=== PATIENT | female | born 1980 | race Two or more races ===

== ENCOUNTER 2022-07-12 15:11 | Emergency (ER) | payer OTHER, SELFPAY ==
--- NOTE | ~2022-07-12 | CT_ITS ---
EXAMINATION: CT HEAD WITHOUT CONTRAST CT FACIAL BONES WITHOUT CONTRAST CT CERVICAL SPINE WITHOUT CONTRAST CLINICAL INFORMATION: Status post head and facial injury with laceration to left eyebrow. New onset neck pain. COMPARISON: There are no prior studies available for comparison. TECHNIQUE: Multidetector CT imaging of the head, facial bones and cervical spine was performed without the use of intravenous contrast. Coronal and sagittal reformatted images were generated at the technologist workstation. This CT examination was performed using dose optimization techniques as appropriate, variously including the following: *Automated exposure control *Adjustment of mA and/or kV according to patient size (this includes techniques or standardized protocols for targeted exams where dose is matched to indication/reason for exam; i.e. extremities or head) *Use of iterative reconstruction technique DLP: 1907 mGy-cm. FINDINGS: CT head: There is no evidence of acute intracranial hemorrhage or territorial infarction. No abnormal mass-effect or midline shift is seen. Foster to white matter differentiation is well preserved. No extra-axial fluid collections are identified. The ventricles are normal in size. There is no abnormal attenuation within the brain parenchyma. There are no acute osseous findings. There is a laceration in the left supraorbital scalp. There are retention cysts in the inferior maxillary sinuses bilaterally. The mastoid air cells and the other paranasal sinuses are well-aerated. CT facial bones: There is no acute maxillofacial fracture. The mandible and mandibular condyles are intact. The pterygoid plates, zygomatic arches and lamina papyracea are intact. The bony orbital rims are intact. The nasal bones are intact. No air-fluid levels are seen in the paranasal sinuses. The nasal septum is deviated to the left with a left-sided bony nasal septal spur. There is a torus palatini and there are maxillary meron bilaterally. 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 There are periapical lucencies around the roots of the bilateral maxillary central incisor teeth. The mastoid air cells and visualized middle ear cavities are well-aerated. The intraorbital structures are normal. The TMJs are unremarkable. CT cervical spine: There is reversal of the normal cervical lordosis which may be positional or due to muscle spasm. Vertebral body heights are maintained and no fractures are demonstrated. There are multilevel marginal osteophytes. The facets appear normally aligned. The lateral masses of C1 and C2 are normally aligned and the dens is intact. No significant degenerative changes are appreciated. There is no central canal or foraminal narrowing. The cervicomedullary junction and spinal cord are grossly unremarkable. The paraspinal soft tissues are unremarkable. The imaged lung apices are clear. CT/CT cervical spine wo IV con IMPRESSION: CT head: 1. There are no acute bleeds or territorial infarcts. 2. No masses are demonstrated. 3. There is a laceration in the left supraorbital scalp. CT maxillofacial: 1. No fractures are demonstrated. 2. The soft tissues are unremarkable. 3. There are supernumerary premolar teeth as described above. CT cervical spine: 1. There are no acute fractures or subluxations in the cervical spine.
[2022-07-12 15:14] VITALS: BP 116/78; PULSE 93; RESP 18; TEMP 36.7; O2SAT 95; BMI 33.5
--- NOTE | 2022-07-12 15:16 | ED.WOUNDLAC ---
HPI - Wound/Laceration General Chief Complaint: Head Injury <ANYI Soriano - Last Filed: 07/12/22 15:18> Stated Complaint: laceration above left eye <ANYI Soriano - Last Filed: 07/12/22 15:18> Time Seen by Provider: 07/12/22 16:27 <ANYI Soriano - Last Filed: 07/12/22 15:18> Source: patient <ANYI Ruiz - Last Filed: 07/12/22 17:09> Mode of arrival: ambulatory <ANYI Ruiz - Last Filed: 07/12/22 17:09> Limitations: no limitations <ANYI Ruiz - Last Filed: 07/12/22 17:09> History of Present Illness HPI narrative: 41-year-old female with presents the ER for evaluation of a laceration to the left side of her forehead after she hit her head on the open truck of her SUV. She states she hit the corner directly and sustained a deep laceration above her left eyebrow. She did not lose consciousness. She is on anticoagulation. No other injuries. Immediately after the incident patient had a headache and some nausea. No vomiting or confusion. <ANYI Ruiz - Last Filed: 07/12/22 17:09> Onset (ago): minute(s) <ANYI Ruiz - Last Filed: 07/12/22 17:09> Location: face <ANYI Ruiz - Last Filed: 07/12/22 17:09> Place: outdoors <ANYI Ruiz - Last Filed: 07/12/22 17:09> Patient tetanus UTD: Yes <ANYI Ruiz - Last Filed: 07/12/22 17:09> Context: accidental <ANYI Ruiz Last Filed: 07/12/22 17:09> Associated symptoms: pain <ANYI Ruiz - Last Filed: 07/12/22 17:09> Treatments prior to arrival: bandage <ANYI Ruiz Last Filed: 07/12/22 17:09> Related Data Allergies/Adverse Reactions: Allergies Allergy/AdvReac Type Severity Reaction Status Date / Time bee pollen [BEE STINGS] Allergy Unknown SWOLLEN Unverified 05/17/20 19:32 shellfish derived Allergy Unknown SWELLING Unverified 05/17/20 19:32 [SHELLFISH DERIVED] <ANYI Soriano - Last Filed: 07/12/22 15:18> Review of Systems Review of Systems: Constitutional: No Fever, No Chills ENT/Mouth: No sore throat, No Rhinorrhea Eyes: No Eye Pain, No Swelling, No visions changes. Cardiovascular: No Chest Pain, No SOB Gastrointestinal: + Nausea, No Vomiting, No Diarrhea, No abdominal Pain Genitourinary: No Dysuria, No Urinary Frequency, No Hematuria Musculoskeletal: No joint pain, No Myalgias Skin: + Skin Lesions, No rash Neuro: No Weakness, No Numbness, No Dizziness, + Headache Heme/Lymph: No Bruising, No Lymphadenopathy <ANYI Ruiz - Last Filed: 07/12/22 17:09> [facility] Social History Social History: Social History Advance Directives: No Advance Directives Information Provided: No <ANYI Soriano - Last Filed: 07/12/22 15:18> Physical Exam Vital Signs: Vital Signs: Last Vital Signs Temp 98.1 F 07/12/22 15:14 Pulse 93 07/12/22 15:14 Resp 18 07/12/22 15:14 BP 116/78 07/12/22 15:14 Pulse Ox 95 07/12/22 15:14 O2 Del Method 07/12/22 15:14 BMI result Body Mass Index 33.5 <ANYI Soriano - Last Filed: 07/12/22 15:18> Vital Signs: Last Vital Signs Temp 98.1 F 07/12/22 15:14 Pulse 93 07/12/22 15:14 Resp 18 07/12/22 15:14 BP 116/78 07/12/22 15:14 Pulse Ox 95 07/12/22 15:14 O2 Del Method 07/12/22 15:14 BMI result Body Mass Index 33.5 <ANYI Ruiz - Last Filed: 07/12/22 17:09> Appearance: Alert. Oriented X3. No acute distress. Head/face: There is a deep approximately 5 cm linear laceration over the patient's left eyebrow, beginning in the middle of the left eyebrow and extending superiorly and laterally. It is gaping about 1 cm. No active bleeding. There is surrounding soft tissue swelling and tenderness. Eyes: Pupils equal, round and reactive to light. EOMI. ENT: Pharynx normal. Normal tympanic membranes bilaterally. Neck: Normal inspection. Neck supple. No midline tenderness. Normal range of motion. CVS: Normal heart rate and rhythm. Pulses normal. Respiratory: No respiratory distress. Breath sounds normal. Skin: Skin warm and dry. Normal skin color. Normal skin turgor. No rashes. Extremities: Normal inspection range of motion x4. Neuro: Oriented X 3. No motor deficit. No sensory deficit. CN II-XII intact. normal speech and cognition. <ANYI Ruiz - Last Filed: 07/12/22 17:09> Course Reevaluation(s) Reevaluation #1: 41-year-old female presenting to the ER with complaints of a laceration to her left eyebrow/forehead that occurred prior to arrival after she accidentally walked into her trunk that was opening at the same time. She denies loss of consciousness or neck injury and she did not fall down to the ground. She reports she is up-to-date on tetanus. She denies any other symptoms complaints or concerns at this time. Plan: At this time she will go back to the waiting room and a CT scan of her brain/facial bones were ordered will need to be sutured. She has a proximally 3 cm intermediate laceration right above the left eyebrow. <ANYI Soriano - Last Filed: 07/12/22 15:18> Time: 15:17 <ANYI Soriano - Last Filed: 07/12/22 15:18> Reevaluation #2: Patient's CT scans showed no traumatic injury. See procedure note for lac repair. Wound care instructions were discussed with the patient and her . She is stable for discharge home. <ANYI Ruiz - Last Filed: 07/12/22 17:09> Time: 17:07 <ANYI Ruiz Last Filed: 07/12/22 17:09> Medications Administered Discontinued Medications Generic Name Dose Route Start Last Admin Trade Name Freq PRN Reason Stop Dose Admin Lidocaine HCl 5 ml 07/12/22 16:27 07/12/22 16:34 Lidocaine Hcl 2 % Mpf 5 Ml Vial SUBCUT 07/12/22 16:28 5 ml ONCE ONE Administration <ANYI Soriano - Last Filed: 07/12/22 15:18> Medications Administered Discontinued Medications Generic Name Dose Route Start Last Admin Trade Name Zully PRN Reason Stop Dose Admin Lidocaine HCl 5 ml 07/12/22 16:27 07/12/22 16:34 Lidocaine Hcl 2 % Mpf 5 Ml Vial SUBCUT 07/12/22 16:28 5 ml ONCE ONE Administration <ANYI Ruiz - Last Filed: 07/12/22 17:09> Procedures Laceration Laceration 1: Site: face <ANYI Ruiz - Last Filed: 07/12/22 17:09> Side (If applicable): left <ANYI Ruiz - Last Filed: 07/12/22 17:09> Size (cm): 5 <ANYI Ruiz - Last Filed: 07/12/22 17:09> Description: linear <ANYI Ruiz - Last Filed: 07/12/22 17:09> Depth: involves muscle layer <ANYI Ruiz - Last Filed: 07/12/22 17:09> Local Anesthetic: lidocaine 2% <ANYI Ruiz - Last Filed: 07/12/22 17:09> Amount of anesthesia used (mL): 4 <ANYI Ruiz - Last Filed: 07/12/22 17:09> Pre-repair: wound explored, irrigated extensively and deep structures intact <ANYI Ruiz - Last Filed: 07/12/22 17:09> Skin layer closed with: other (prolene) <ANYI Ruiz - Last Filed: 07/12/22 17:09> Size (cm): 6-0 <ANYI Ruiz - Last Filed: 07/12/22 17:09> Number of sutures: 7 <ANYI Ruiz - Last Filed: 07/12/22 17:09> Technique: simple, interrupted <ANYI Ruiz - Last Filed: 07/12/22 17:09> Subcutaneous layer closed with: chromic gut <ANYI Ruiz Last Filed: 07/12/22 17:09> Size: 6-0 <ANYI Ruiz - Last Filed: 07/12/22 17:09> Number of sutures: 3 <ANYI Ruiz - Last Filed: 07/12/22 17:09> Technique: simple, interrupted <ANYI Ruiz - Last Filed: 07/12/22 17:09> Discharge Plan Discharge Clinical Impression: Forehead laceration, Head injury <ANYI Soriano Last Filed: 07/12/22 15:18> Patient Disposition: Home, Self-Care <ANYI Soriano Last Filed: 07/12/22 15:18> Instructions: Laceration (ED), Head Injury (ED) <ANYI Soriano Last Filed: 07/12/22 15:18> Additional Instructions: Your CT scans did not show any evidence of traumatic injury. You will need your stitches out in 5-7 days. See you doctor for this or come back to the ER and we will remove them. Do not get wet for 24 hours, after that you can briefly wash with soap and water then pat dry. Keep wound open to air, allow to scab over. Use ice several times per day to help with pain and swelling. Take Motrin and Tylenol as needed for pain and headache. Do not submerge in water. Rest. No strenuous activity. Avoid screen time this weekend. If you develop signs of infection including increased pain, swelling, redness or drainage of pus come back to the ER for further evaluation. <ANYI Soriano Last Filed: 07/12/22 15:18>
[2022-07-12] MEDS: Lidocaine HCl 2 % MPF 5 ML VIAL SUBCUT (16:34)
--- OUTSIDE RECORDS SUMMARY | 2022-07-12 16:36 | XMS_ITS | Continuity of Care Document ---
:1980 Author Organization [facility] Address [address] [place] [address]- Care Team Providers Name Role Phone Ryan EUCEDA, Shilpa Tellez Primary Care Physician [place] [facility] [place] 11[place]18/21 - 12/18/21 [facility] [address] [place] [address]- Allergies, Adverse Reactions, Alerts Substance Reaction Severity Status shellfish facial swelling Active Bee Stings SOB/localized swelling Active Immunizations Given and Recorded Vaccine Date Status Refusal Reason SARS-CoV-2 (COVID-19) mRNA BNT-162b2 vac 12/21/20 Recorde d SARS-CoV-2 (COVID-19) mRNA BNT-162b2 vac 11/30/20 Recorde d tetanus/diphtheria/pertussis, acel(Tdap)1 04/25/11 Given 1Admin Note: vis given Medications amitriptyline 10 mg oral tablet 20 mg, 2, tablet, By Mouth, Daily at bedtime, # 60 tablet, Refills 5, Tot. Refills 5, Maintenance, 12/09/21 15:19:00 EDT, Route to Pharmacy Electronically, [facility]/pharmacy #[id number], Partial fill upon patientrequest if the prescription is for a schedule II... Start Date: 12/09/21 Status: Ordereddiclofenac sodium 75 mg oral delayed release tablet 1 tablet = 75 mg, By Mouth, 2 times a day, PRN for pain, # 20 tablet, 0 Refills, Maintenance, 12/09/21 8:28:00 EDT, Tablet, Partial fill upon patient request if the prescription is for a schedule II opioid drug. Start Date: 12/09/21 Status: Orderedescitalopram 10 mg oral tablet 1 tablet = 10 mg, By Mouth, Daily, # 30 tablet, 5 Refills, Maintenance, 12/09/21 8:38:00 EDT, Tablet, [facility]/pharmacy #[id number], Partial fill upon patient request if the prescription is for a schedule II opioid drug., 162.56, cm, 12/09/21 8:17:00 EDT, Height... 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
--- OUTSIDE RECORDS SUMMARY | 2022-07-12 16:36 | XMS_ITS | Continuity of Care Document ---
:1980 Author Organization [facility] Address [address] [place] [address]- Care Team Providers Name Role Phone Maddison VU, [facility] Primary Care Physician En[place] [facility] [place] Date(s): 02/17/22 - 02/24/22 [facility] [address] [place] [address]- [place] Encounter Diagnosis Rash (Discharge Diagnosis) - 02/17/22 Attending Physician: Yasmani Alvarenga MD Allergies, Adverse Reactions, Alerts Substance Reaction Severity Status shellfish facial swelling Active Bee Stings SOB/localized swelling Active Immunizations Given and Recorded Vaccine Date Status Refusal Reason SARS-CoV-2 (COVID-19) mRNA BNT-162b2 vac 07/26/21 Recorde d SARS-CoV-2 (COVID-19) mRNA BNT-162b2 vac 12/21/20 Recorde d SARS-CoV-2 (COVID-19) mRNA BNT-162b2 vac 11/30/20 Recorde d tetanus/diphtheria/pertussis, acel(Tdap)1 04/25/11 Given 1Admin Note: vis given Medications permethrin 5% topical cream 1 application, Topically, Once, Apply to skin from head to soles. Leave on 8-10 hours then wash off,# 60 mL, 0 Refills, Soft Stop, 02/17/22 13:46:00 EDT, Lotion, [facility]/pharmacy #[id number], Partial fill upon patient request if the prescription is for a sched... Start Date: 02/17/22 Status: OrderedpredniSONE 50 mg oral tablet 1 tablet = 50 mg, By Mouth, Daily, # 5 tablet, 0 Refills, Maintenance, 01/29/22 14:14:00 EDT, Tablet, [id number], Partial fill upon patient request if the prescription is for a schedule II opioid drug., 162.56, cm, 01/29/22 13:50:00 EDT, Heigh... Start Date: 01/29/22 Stop Date: 02/03/22 Status: Orderedzolpidem 10 mg oral tablet 1 tablet = 10 mg, By Mouth, Daily at bedtime, PRN as needed for insomnia, for 15 days, # 15 tablet, 5 Refills, Acute 05/08/22 16:00:00 EDT, 02/07/22 16:00:00 EDT, Tablet, [facility]/pharmacy #[id number], Partial fill upon patient request if the prescription is for... Start Date: 02/07/22 Stop Date: 05/08/22 Status: Orderedzolpidem 6.25 mg oral tablet, extended release 1 tablet = 6.25 mg, By Mouth, Daily at bedtime, PRN as needed for sleep, # 12 tablet, 0 Refills, Maintenance, 01/06/22 8:23:00 EDT, ER Tablet, [facility]/pharmacy #[id number], Partial fill upon patient request if the prescription is for a schedule II opioid drug.,... 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) JAIMIE (generalized anxiety Active disorder)(Confirmed) Insomnia(Confirmed) Active Obese class II(Confirmed) Active Recurrent loss(Confirmed) Active Tension headache(Confirmed) Active Urethral Diverticulum(Confirmed) Active Diagnosis Diagnosis Type Effective Dates Health Status Clinical Serv ice Informant Rash Discharge 02/17/22 Diagnosis Vital Signs Most recent to oldest [Reference Range]: 1 Height 162 cm (02/17/22 12:51 PM) Weight 101.5 kg (02/17/22 12:51 PM) Oxygen Saturation [94-100 %] 100 % (02/17/22 12:51 PM) Pulse Rate [55-90 bpm] 87 bpm (02/17/22 12:51 PM) Body Mass Index [18.5-24.99] 38.68 *>HHI* (02/17/22 12:51 PM) Blood Pressure [90-138/55-84 mm Hg] 115/81 mm Hg (02/17/22 12:51 PM) Mode of Delivery (Oxygen) Room air (02/17/22 12:51 PM) Blood pressure sites Arm, left (02/17/22 12:51 PM) Weight Obtained Via Standing scale (02/17/22 12:51 PM) Social History Social History Type Response Smoking Status Never smoker entered on: 11/16/13 Sex
--- OUTSIDE RECORDS SUMMARY | 2022-07-12 16:36 | XMS_ITS | Continuity of Care Document ---
:1980 Author Organization [facility] Address [address] [place] [phone]- Care Team Providers Name Role Phone Not on Staff, PCP Primary Care Physician Unavailable [place] [facility] [place] [facility] [place]07/20 [facility] [address] [place] [id number] Attending Physician: Kerri Guerrero MD Referring Physician: Not on Staff, Referring MD Allergies, Adverse Reactions, Alerts Substance Reaction Severity Status shellfish facial swelling Active Bee Stings SOB/localized swelling Active Immunizations Given and Recorded Vaccine Date Status Refusal Reason tetanus/diphtheria/pertussis, acel(Tdap)1 04/25/11 Given 1Admin Note: vis given Medications CoQ10 = 300 mg, By Mouth, Daily, 0 Refills, Maintenance, 10/01/20 15:01:00 EST, Partial fill upon patient request if the prescription is for a schedule II opioid drug. Start Date: 10/01/20 Status: OrderedDHEA By Mouth, Daily, 0 Refills, Maintenance, 10/01/20 15:01:00 EST, Partial fill upon patient request ifthe prescription is for a schedule II opioid drug. Start Date: 10/01/20 Status: OrderedEstrace 2 mg oral tablet 1 tablet = 2 mg, By Mouth, 2 times a day, Take daily for 3 weeks, # 84 tablet, 0 Refills, Maintenance, 06/04/20 11:00:00 EDT, Tablet, [facility]/pharmacy #[id number], 162.56, cm, 06/04/20 8:39:00 EDT, Height, 96.5,kg, 06/04/20 8:39:00 EDT, Dry Weight Start Date: 06/04/20 Status: OrderedMisc Rx lipozene 2 capsules, Daily, Refills 0, Maintenance, 05/29/20 15:57:00 EDT, Supply Start Date: 05/29/20 Status: OrderedMultivitamin Daily, 0 Refills, Maintenance, 10/01/20 15:01:00 EST, Partial fill upon patient request if the prescription is for a schedule II opioid drug. Start Date: 10/01/20 Status: OrderedProvera 10 mg oral tablet 10 mg, 1, tablet, By Mouth, Daily, Take daily for 10 days following estrace, # 20 tablet, Refills 0,Tot. Refills 0, Maintenance, 06/04/20 11:01:00 EDT, Route to Pharmacy Electronically, [facility]/pharmacy #[id number], 162.56, cm, 06/04/20 8:39:00 EDT, Height, 96... Start Date: 06/04/20 Status: OrderedVitamin B12 0 Refills, Maintenance, 10/01/20 15:01:00 EST, Partial fill upon patient request if the prescriptionis for a schedule II opioid drug. Start Date: 10/01/20 Status: Ordered Problem List Condition Effective Dates Status Health Status Informant 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
--- OUTSIDE RECORDS SUMMARY | 2022-07-12 16:36 | XMS_ITS | Continuity of Care Document ---
:1980 Author Organization [facility] Address [address] [place] [phone]- Care Team Providers Name Role Phone Not on Staff, PCP Primary Care Physician Unavailable En[place] [facility] [place] Date(s): 10/17/19 - 10/24/19 [facility] [address] [place] [address] [facility] Attending Physician: Kerri Guerrero MD Referring Physician: Not on Staff, Referring MD Allergies, Adverse Reactions, Alerts Substance Reaction Severity Status shellfish facial swelling Active Bee Stings SOB/localized swelling Active Immunizations Given and Recorded Vaccine Date Status Refusal Reason tetanus/diphtheria/pertussis, acel(Tdap)1 04/25/11 Given 1Admin Note: vis given Medications Colace sodium 100 mg oral capsule 100 mg, 1, capsule, By Mouth, 2 times a day, PRN, # 20 capsule, Refills 0, Tot. Refills 0, Maintenance, for constipation, 10/05/19 7:46:00 EST, Route to Pharmacy Electronically, [facility]/pharmacy #[id number], 167.64, cm, 10/05/19 7:19:00 EST, Height, 99.8, kg, 0... Start Date: 10/05/19 Status: Orderedibuprofen 600 mg oral tablet 600 mg, 1, tablet, By Mouth, Every 6 hours, # 30 tablet, Refills 0, Tot. Refills 0, Acute 11/04/19 0:00:00 EST, 10/05/19 7:46:00 EST, Route to Pharmacy Electronically, [facility]/pharmacy #[id number], 167.64, cm, 10/05/19 7:19:00 EST, Height, 99.8, kg, 10/03/19 14... Start Date: 10/05/19 Stop Date: 11/04/19 Status: OrderedSenna 8.6 mg oral tablet 17.2 mg, 2, tablet, By Mouth, Daily at bedtime, PRN, # 20 tablet, Refills 0, Tot. Refills 0, Acute, for constipation, 11/04/19 0:00:00 EST, 10/05/19 7:46:00 EST, Route to Pharmacy Electronically, [facility]/pharmacy #[id number] Tablet, 167.64, cm, 10/05/19 7:19:00... Start Date: 10/05/19 Stop Date: 11/04/19 Status: Orderedsimethicone 80 mg oral tablet 1 tablet = 80 mg, Chew, 3 times a day after meals and bedtime, PRN for gas, # 60 tablet, 0 Refills, Acute 11/04/19 0:00:00 EST, 10/05/19 7:46:00 EST, Tablet, [facility]/pharmacy #[id number], 167.64, cm, 10/05/19 7:19:00 EST, Height, 99.8, kg, 10/03/19 14:43:00 EST... Start Date: 10/05/19 Stop Date: 11/04/19 Status: OrderedTylenol 325 mg oral tablet 650 mg, 2, tablet, By Mouth, Every 4 hours, PRN, # 120 tablet, Refills 0, Tot. Refills 0, Acute 11/04/19 0:00:00 EST, for pain, 10/05/19 7:46:00 EST, Route to Pharmacy Electronically, [facility]/pharmacy #[id number], 167.64, cm, 10/05/19 7:19:00 EST, Height, 99.8,... Start Date: 10/05/19 Stop Date: 11/04/19 Status: Ordered Problem List Condition Effective Dates Status Health Status Informant Recurrent loss(Confirmed) Active Urethral Diverticulum(Confirmed) Active Vital Signs Most recent to oldest [Reference Range]: 1 Height 167.64 cm (10/17/19 1:23 PM) Weight 99 kg (10/17/19 1:23 PM) Body Mass Index [18.5-24.99] 35.23 *>HHI* (10/17/19 1:23 PM) Blood Pressure [90-138/55-84 mm Hg] 113/89 mm Hg (10/17/19 1:23 PM) Social History Social History Type Response Smoking Status Never smoker entered on: 11/16/13 Sex
--- OUTSIDE RECORDS SUMMARY | 2022-07-12 16:36 | XMS_ITS | Continuity of Care Document ---
:1980 Author Organization [facility] Address [address] [place] [id number]- Care Team Providers Name Role Phone Not on Staff, PCP Primary Care Physician Unavailable Encounter [facility] [place] Date(s): 04/18/20 - 04/25/20 [facility] [address] [place] [id number] Attending Physician: Kerri Guerrero MD Allergies, Adverse Reactions, Alerts Substance Reaction [...] 10/05/19 7:46:00 EST, Route to Pharmacy Electronically, [facility]/pharmacy #[id number], 167.64, cm, 10/05/19 7:19:00 EST, Height, 99.8, kg, 0... Start Date: 10/05/19 Status: Ordered Problem List Condition Effective Dates Status Health Status Informant Recurrent loss(Confirmed) Active Urethral Diverticulum(Confirmed) Active Vital Signs Most recent to oldest [Reference Range]: 1 Height 167.64 cm (04/18/20 8:03 AM) Weight 99.3 kg (04/18/20 8:03 AM) Pulse Rate [55-90 bpm] 78 bpm (04/18/20 8:03 AM) Body Mass Index [18.5-24.99] 35.33 *>HHI* (04/18/20 8:03 AM) Blood Pressure [90-138/55-84 mm Hg] 142/117 mm Hg *H* (04/18/20 8:03 AM) Blood pressure sites Arm, left (04/18/20 8:03 AM) Weight Obtained Via Standing scale (04/18/20 8:03 AM) Dry Weight Obtained Via Standing scale (04/18/20 8:03 AM) Social History Social History Type Response Smoking Status Never smoker entered on: 11/16/13 Sex
--- OUTSIDE RECORDS SUMMARY | 2022-07-12 16:36 | XMS_ITS | Continuity of Care Document ---
:1980 Author Organization [facility] Address [address] [place] [address]- Care Team Providers Name Role Phone Not on Staff, PCP Primary Care Physician Unavailable Encounter [facility] [place] Date(s): 06/04/20 - 06/04/[address] [address]- [facility] Discharge Disposition: A-D/C Home Attending Physician: Kerri Guerrero MD Admitting Physician: Kerri Guerrero MD Referring Physician: Kerri Guerrero MD Allergies, Adverse Reactions, Alerts Substance Reaction Severity Status shellfish facial swelling Active Bee Stings SOB/localized swelling Active Immunizations Given and Recorded Vaccine Date Status Refusal Reason tetanus/diphtheria/pertussis, acel(Tdap)1 04/25/11 Given 1Admin Note: vis given Medications Estrace 2 mg oral tablet 1 tablet = 2 mg, By Mouth, 2 times a day, Take daily for 3 weeks, # 84 tablet, 0 Refills, Maintenance, 06/04/20 11:00:00 EDT, Tablet, [id number], 162.56, cm, 06/04/20 8:39:00 EDT, Height, 96.5,kg, 06/04/20 8:39:00 EDT, Dry Weight Start Date: 06/04/20 Status: OrderedMisc Rx lipozene 2 capsules, Daily, Refills 0, Maintenance, 05/29/20 15:57:00 EDT, Supply Start Date: 05/29/20 Status: OrderedmiSOPROStol 200 mcg oral tablet 1 tablet = 200 mcg, Vaginally, Once, 1 Tablet VAGINALLY the evening before procedure, # 1 tablet, 0 Refills, Soft Stop, 05/30/20 9:53:00 EDT, [id number], 162.56, cm, 05/30/20 8:58:00 EDT, Height, 94.09, kg, 05/29/20 16:18:00 EDT, Dry Weight Start Date: 05/30/20 Status: OrderedoxyCODONE 5 mg oral tablet See Instructions, 1-2 tablets By Mouth Every4- 6 hours prn post-op pain, # 10 tablet, Refills 0, Tot. Refills 0, Acute 06/08/20 11:02:00 EDT, 05/30/20 12:18:00 EDT, Instructions Replace Required Details, Route to Pharmacy Electronically, [facility]/pharmacy... Start Date: 05/30/20 Stop Date: 06/08/20 Status: OrderedProvera 10 mg oral tablet 10 mg, 1, tablet, By Mouth, Daily, Take daily for 10 days following estrace, # 20 tablet, Refills 0,Tot. Refills 0, Maintenance, 06/04/20 11:01:00 EDT, Route to Pharmacy Electronically, [facility]/pharmacy #[id number], 162.56, cm, 06/04/20 8:39:00 EDT, Height, 96... Start Date: 06/04/20 Status: Ordered Problem List Condition Effective Dates Status Health Status Informant Recurrent loss(Confirmed) Active Urethral Diverticulum(Confirmed) Active Vital Signs Most recent to oldest 1 2 3 [Reference Range]: Height 162.56 cm 162.56 cm (06/04/20 8:39 AM) (05/29/20 4:18 PM) Weight 96.5 kg 94.09 kg (06/04/20 8:39 AM) (05/29/20 4:18 PM) Oxygen Saturation [94-100 95 % 95 % 100 % %] (06/04/20 12:15 PM) (06/04/20 12:00 PM) (06/04/20 1 1:45 AM) Pulse Rate [55-90 bpm] 72 bpm (06/04/20 8:39 AM) Body Mass Index 36.52 35.61 [18.5-24.99] *>HHI* *>HHI* (06/04/20 8:39 AM) (05/29/20 4:18 PM) Blood Pressure 119/71 mm Hg 129/73 mm Hg 131/78 mm Hg [90-138/55-84 mm Hg] (06/04/20 12:15 PM) (06/04/20 12:00 PM) (06/04 11:45 AM) Respiratory Rate [16-30 16 br/min 25 br/min 17 br/mi n br/min] (06/04/20 12:15 PM) (06/04/20 12:00 PM) (06/04/20 1 1:45 AM) Temperature [96.8-100.4 97.2 DegF 97.9 DegF 98.8 Deg F DegF] (06/04/20 12:15 PM) (06/04/20 11:00 AM) (06/04/20 8 :39 AM) Liters per Minute 6 L/min 6 L/min (06/04/20 11:30 AM) (06/04/20 11:00 AM) Mode of Delivery (Oxygen) Room air Room air Room a ir (06/04/20 1:00 PM) (06/04/20 12:15 PM) (06/04/20 12 :00 PM) Blood pressure sites Arm, right Arm, left (06/04/20 11:00 AM) (06/04/20 8:39 AM) Temperature Route Temporal Temporal Temporal (06/04/20 12:15 PM) (06/04/20 11:00 AM) (06/04/20 8 :39 AM) Dry Weight 96.5 kg 94.09 kg (06/04/20 8:39 AM) (05/29/20 4:18 PM) Weight Obtained Via Standing scale Patient/family stated (06/04/20 8:39 AM) (05/29/20 4:18 PM) Dry Weight Obtained Via Standing scale Patient/family stated (06/04/20 8:39 AM) (05/29/20 4:18 PM) Social History Social History Type Response Smoking Status Never smoker entered on: 11/16/13 Sex
--- OUTSIDE RECORDS SUMMARY | 2022-07-12 16:36 | XMS_ITS | Continuity of Care Document ---
:1980 Author Organization [facility] Address [address] [facility], 4th Floor [address] [place] [address]- Care Team Providers Name Role Phone Not on Staff, PCP Primary Care Physician Unavailable Encounter [facility] Date(s): 04/03/20 - 05/03/20 [facility] [address] [facility], [address] [place] [address]- [facility] Allergies, Adverse Reactions, Alerts Substance Reaction Severity [...] 10/05/19 7:46:00 EST, Route to Pharmacy Electronically, [facility]acy #[id number], 167.64, cm, 10/05/19 7:19:00 EST, Height, 99.8, kg, 0... 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
--- OUTSIDE RECORDS SUMMARY | 2022-07-12 16:36 | XMS_ITS | Continuity of Care Document ---
:1980 Author Organization [facility] Address [address] [facility], 4th Floor [address] [place] [address]- Care Team Providers Name Role Phone Not on Staff, PCP Primary Care Physician Unavailable Encounter [facility] Date(s): 11/08/20 - 12/08/20 [facility] [address] [place] [address], [address] [place] [id number] Allergies, Adverse Reactions, Alerts Substance Reaction Severity Status shellfish facial swelling Active Bee Stings SOB/localized swelling Active Immunizations Given and Recorded Vaccine Date Status Refusal Reason tetanus/diphtheria/pertussis, acel(Tdap)1 04/25/11 Given 1Admin Note: vis given Problem List Condition Effective Dates Status Health Status Informant 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
--- OUTSIDE RECORDS SUMMARY | 2022-07-12 16:36 | XMS_ITS | Continuity of Care Document ---
:1980 Author Organization [facility] Address [address] [place] [address]- Care Team Providers Name Role Phone Dorothy Washburn MD Primary Care Physician [place] [facility] [place] 12/24/21 - 01/23/22 [facility] [address] [place] [address]- Allergies, Adverse Reactions, Alerts Substance Reaction Severity Status shellfish facial swelling Active Bee Stings SOB/localized swelling Active Immunizations Given and Recorded Vaccine Date Status Refusal Reason SARS-CoV-2 (COVID-19) mRNA BNT-162b2 vac 12/21/20 Recorde d SARS-CoV-2 (COVID-19) mRNA BNT-162b2 vac 11/30/20 Recorde d tetanus/diphtheria/pertussis, acel(Tdap)1 04/25/11 Given 1Admin Note: vis given Medications diclofenac sodium 75 mg oral delayed release tablet [...] 5 Refills, Maintenance, 12/09/21 8:38:00 EDT, Tablet, [id number], Partial fill upon patient request if the prescription is for a schedule II opioid drug., 162.56, cm, 12/09/21 8:17:00 EDT, Height... Start Date: 12/09/21 Status: Orderedzolpidem 6.25 mg oral tablet, extended release 1 tablet = 6.25 mg, By Mouth, Daily at bedtime, PRN as needed for sleep, # 12 tablet, 0 Refills, Maintenance, 01/06/22 8:23:00 EDT, ER Tablet, [id number], Partial fill upon patient [...]
--- OUTSIDE RECORDS SUMMARY | 2022-07-12 16:36 | XMS_ITS | Continuity of Care Document ---
:1980 Author Organization [facility] Address [address] [facility], 4th Floor [address] [place] [address]- Care Team Providers Name Role Phone Ryan TOMATO PASTE MAKER, Shilpa Tellez Primary Care Physician [phone] Encounter [facility] [place] Date(s): 02/20/21 - 03/22/21 [facility] [address] [facility], [address] [place] [address] Attending Physician: Nayely Hoover Admitting Physician: Nayely Hoover Referring Physician: Nayely Hoover Allergies, Adverse Reactions, Alerts Substance Reaction Severity [...]
--- OUTSIDE RECORDS SUMMARY | 2022-07-12 16:36 | XMS_ITS | Continuity of Care Document ---
:1980 Author Organization [facility] Address [address] [place] [address]- Care Team Providers Name Role Phone Ryan EUCEDA, Shilpa Tellez Primary Care Physician [phone] Encounter [facility] Date(s): 05/13/21 - 05/20/21 [facility] Adult [address] [place] [address]- Encounter Diagnosis Claustrophobia (Discharge Diagnosis) - 05/13/21 Attending Physician: Ramila Jenkins MD Referring Physician: Ryan EUCEDA, Shilpa Tellez Allergies, Adverse Reactions, Alerts Substance Reaction Severity Status shellfish facial swelling Active Bee Stings SOB/localized swelling Active Immunizations Given and Recorded Vaccine Date Status Refusal Reason SARS-CoV-2 (COVID-19) mRNA BNT-162b2 vac 12/21/20 Recorde d SARS-CoV-2 (COVID-19) mRNA BNT-162b2 vac 11/30/20 Recorde d tetanus/diphtheria/pertussis, acel(Tdap)1 04/25/11 Given 1Admin Note: vis given Medications Hydrocodone By Mouth, 0 Refills, Maintenance, 05/13/21 14:14:00 EDT, Partial fill upon patient request if the prescription is for a schedule II opioid drug. 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
--- OUTSIDE RECORDS SUMMARY | 2022-07-12 16:36 | XMS_ITS | Continuity of Care Document ---
:1980 Author Organization [facility] Address [address] [place] [address]- Care Team Providers Name Role Phone Ryan EUCEDA, Shilpa Tellez Primary Care Physician [place] [facility] [place] 12/09/21 - 01/08/22 [facility] [address] [place] [address]- Allergies, Adverse Reactions, Alerts Substance Reaction Severity [...] Refills, Maintenance, 01/06/22 8:23:00 EDT, ER Tablet, [facility]/pharmacy #[id number], Partial fill upon patient request [...]
--- OUTSIDE RECORDS SUMMARY | 2022-07-12 16:36 | XMS_ITS | Continuity of Care Document ---
:1980 Author Organization [facility] Address [address] [place] [address]- Care Team Providers Name Role Phone Ryan EUCEDA, Shilpa Tellez Primary Care Physician [phone] Encounter [facility] [place] Date(s): 11/15/21 - 11/22/21 [facility] Adult [address] [place] [address]- Encounter Diagnosis Tension headache (Discharge Diagnosis) - 11/15/21 Moderately severe depression (Discharge Diagnosis) - 11/15/21 Attending Physician: Not on Staff, Attending MD Allergies, Adverse Reactions, Alerts Substance Reaction Severity Status shellfish facial swelling Active Bee Stings SOB/localized swelling Active Immunizations Given and Recorded Vaccine Date Status Refusal Reason SARS-CoV-2 (COVID-19) mRNA BNT-162b2 vac 12/21/20 Recorde d SARS-CoV-2 (COVID-19) mRNA BNT-162b2 vac 11/30/20 Recorde d tetanus/diphtheria/pertussis, acel(Tdap)1 04/25/11 Given 1Admin Note: vis given Medications amitriptyline 10 mg oral tablet 10 mg, 1, tablet, By Mouth, Daily at bedtime, # 30 tablet, Refills 5, Tot. Refills 5, Maintenance, 11/18/21 13:57:00 EDT, Route to Pharmacy Electronically, [facility]/pharmacy #[id number], Partial fill upon patientrequest if the prescription is for a schedule II... Start Date: 11/18/21 Status: Ordered Problem List Condition Effective Dates Status Health Status Informant Achilles tendinosis of left lower Active extremity(Confirmed) Obese class II(Confirmed) Active Recurrent loss(Confirmed) Active Tension headache(Confirmed) Active Urethral Diverticulum(Confirmed) Active Diagnosis Diagnosis Type Effective Dates Health Clinical Infor [facility] Status Service Tension headache Discharge 11/15/21 Diagnosis Moderately severe Discharge 11/15/21 depression Diagnosis Vital Signs Most recent to oldest [Reference Range]: 1 Height 162.56 cm (11/15/21 3:14 PM) Weight 98.2 kg (11/15/21 3:14 PM) Oxygen Saturation [94-100 %] 100 % (11/15/21 3:14 PM) Pulse Rate [55-90 bpm] 99 bpm *H* (11/15/21 3:14 PM) Body Mass Index [18.5-24.99] 37.16 *>HHI* (11/15/21 3:14 PM) Blood Pressure [90-138/55-84 mm Hg] 119/70 mm Hg (11/15/21 3:14 PM) Temperature [96.8-100.4 DegF] 98.9 DegF (11/15/21 3:14 PM) Mode of Delivery (Oxygen) Room air (11/15/21 3:14 PM) Blood pressure sites Arm, right (11/15/21 3:14 PM) Temperature Route Oral (11/15/21 3:14 PM) Weight Obtained Via Standing scale (11/15/21 3:14 PM) Social History Social History Type Response Smoking Status Never smoker entered on: 11/16/13 Sex
--- OUTSIDE RECORDS SUMMARY | 2022-07-12 16:36 | XMS_ITS | Continuity of Care Document ---
:1980 Author Organization [facility] Address [address] [facility], 4[address] [place] [address]- Care Team Providers Name Role Phone Not on Staff, PCP Primary Care Physician Unavailable Encounter [facility] [place] Date(s): 04/30/20 - 05/30/20 [facility] [address] [facility], [address] [place] [address]- [facility] Allergies, Adverse Reactions, Alerts Substance Reaction Severity Status shellfish facial swelling Active Bee Stings SOB/localized swelling Active Immunizations Given and Recorded Vaccine Date Status Refusal Reason tetanus/diphtheria/pertussis, acel(Tdap)1 04/25/11 Given 1Admin Note: vis given Medications Misc Rx lipozene 2 capsules, Daily, Refills 0, [...] Replace Required Details, [facility] 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
--- OUTSIDE RECORDS SUMMARY | 2022-07-12 16:36 | XMS_ITS | Continuity of Care Document ---
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 Diagnosis Diagnosis Type Effective Dates Health Clinical Infor mant Status Service Achilles Discharge 03/11/21 tendinitis Diagnosis Insomnia Discharge 03/11/21 Diagnosis Vital Signs Most recent to oldest [Reference Range]: 1 Height 162.56 cm (03/11/21 3:41 PM) Weight 100.9 kg (03/11/21 3:41 PM) Oxygen Saturation [94-100 %] 99 % (03/11/21 3:41 PM) Pulse Rate [55-90 bpm] 87 bpm (03/11/21 3:41 PM) Body Mass Index [18.5-24.99] 38.18 *>HHI* (03/11/21 3:41 PM) Blood Pressure [90-138/55-84 mm Hg] 123/81 mm Hg (03/11/21 3:41 PM) Mode of Delivery (Oxygen) Room air (03/11/21 3:41 PM) Blood pressure sites Arm, left (03/11/21 3:41 PM) Weight Obtained Via Standing scale (03/11/21 3:41 PM) Social History Social History Type Response Smoking Status Never smoker entered on: 11/16/13 Sex
--- OUTSIDE RECORDS SUMMARY | 2022-07-12 16:36 | XMS_ITS | Continuity of Care Document ---
:1980 Author Organization [facility] Address [address] [facility], 4th Floor [address] [place] [address]- Care Team Providers Name Role Phone Not on Staff, PCP Primary Care Physician Unavailable Encounter [facility] Date(s): 10/17/19 - 10/27/19 [facility] [address] [facility], 4[address] [place] [address] [facility] Attending Physician: Nayely Hoover Admitting Physician: Nayely Hoover Referring Physician: AdmtrNayely Allergies, Adverse Reactions, Alerts Substance Reaction Severity [...] 10/05/19 7:46:00 EST, Route to Pharmacy Electronically, [facility]/pharmacy #[id number], 167.64, cm, 10/05/19 7:19:00 EST, Height, 99.8, kg, 0... Start Date: 10/05/19 Status: Orderedibuprofen 600 mg oral tablet 600 mg, 1, tablet, By Mouth, Every 6 hours, # 30 tablet, Refills 0, Tot. Refills 0, Acute 11/04/19 0:00:00 EST, 10/05/19 7:46:00 EST, Route to Pharmacy Electronically, [facility]/pharmacy #[id number], 167.64, cm, 10/05/19 7:19:00 EST, Height, 99.8, kg, 10/03/19 14... Start Date: 10/05/19 Stop Date: 11/04/19 Status: OrderedSenna 8.6 mg oral tablet 17.2 mg, 2, tablet, By Mouth, Daily at bedtime, PRN, # 20 tablet, Refills 0, Tot. Refills 0, Acute, for constipation, 11/04/19 0:00:00 EST, 10/05/19 7:46:00 EST, Route to Pharmacy Electronically, [facility]/pharmacy #[id number] Tablet, 167.64, cm, 10/05/19 7:19:00... Start Date: 10/05/19 Stop Date: 11/04/19 Status: Orderedsimethicone 80 mg oral tablet 1 tablet = 80 mg, Chew, 3 times a day after meals and bedtime, PRN for gas, # 60 tablet, 0 Refills, Acute 11/04/19 0:00:00 EST, 10/05/19 7:46:00 EST, Tablet, [facility]/pharmacy #[id number], 167.64, cm, 10/05/19 7:19:00 EST, Height, 99.8, kg, 10/03/19 14:43:00 EST... Start Date: 10/05/19 Stop Date: 11/04/19 Status: OrderedTylenol 325 mg oral tablet 650 mg, 2, tablet, By Mouth, Every 4 hours, PRN, # 120 tablet, Refills 0, Tot. Refills 0, Acute 11/04/19 0:00:00 EST, for pain, 10/05/19 7:46:00 EST, [id number] 167.64, cm, 10/05/19 7:19:00 EST, Height, 99.8,... 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
--- OUTSIDE RECORDS SUMMARY | 2022-07-12 16:36 | XMS_ITS | Continuity of Care Document ---
:1980 Author Organization [facility] Address [address] [place] [address]- Care Team Providers Name Role Phone Dorothy Washburn MD Primary Care Physician [place] [facility] [place] Date(s): 02/06/22 - 03/08/22 [facility] [address] [place] [address]- [place] Allergies, Adverse Reactions, Alerts Substance Reaction Severity [...] Refills, Soft Stop, 02/17/22 13:46:00 EDT, Lotion, [facility]/pharmacy #[id number], Partial fill upon [...] 05/08/22 16:00:00 EDT, 02/07/22 16:00:00 EDT, Tablet, [facility]/pharmacy #[id number], Partial fill upon patient request if the prescription is for... Start Date: 02/07/22 Stop Date: 05/08/22 Status: Orderedzolpidem 6.25 mg oral tablet, extended release 1 tablet = 6.25 mg, By Mouth, Daily at bedtime, PRN as needed for sleep, # 12 tablet, 0 Refills, Maintenance, 01/06/22 8:23:00 EDT, ER Tablet, [facility]/pharmacy #[id number], Partial fill [...]
--- OUTSIDE RECORDS SUMMARY | 2022-07-12 16:36 | XMS_ITS | Continuity of Care Document ---
:1980 Author Organization [facility] Address [address] [facility], 4[address] [place] [address]- Care Team Providers Name Role Phone Not on Staff, PCP Primary Care Physician Unavailable [place] [facility] [place]): 06/11/20 - 06/18/20 [facility] [address] [facility], [address] [place] [address] [facility] Attending Physician: Kerri Guerrero MD Allergies, Adverse [...] EDT, Dry Weight Start Date: 05/30/20 Status: OrderedProvera 10 mg oral tablet 10 mg, 1, tablet, By Mouth, Daily, Take daily for 10 days following estrace, # 20 tablet, Refills 0,Tot. Refills 0, Maintenance, 06/04/20 11:01:00 EDT, Route to Pharmacy Electronically, [facility]/pharmacy #[id number], 162.56, cm, 06/04/20 8:39:00 EDT, Height, 96... 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
--- OUTSIDE RECORDS SUMMARY | 2022-07-12 16:36 | XMS_ITS | Continuity of Care Document ---
:1980 Author Organization [facility] Address [address] [place] [address]- Care Team Providers Name Role Phone Maddison VU, [employer] Primary Care Physician Encounter [facility] [place] Date(s): 05/23/22 - 06/28/22 [facility] [address] [place] [address]- Attending Physician: [employer]o [employer] SUPER[employer]OR/[employer]PENTER, Nikky Dela Cruz Allergies, Adverse Reactions, Alerts Substance Reaction Severity Status shellfish facial swelling Active Bee Stings SOB/localized swelling Active Immunizations Given and Recorded Vaccine Date Status Refusal Reason SARS-CoV-2 (COVID-19) mRNA BNT-162b2 vac 07/26/21 Recorde d SARS-CoV-2 (COVID-19) mRNA BNT-162b2 vac 12/21/20 Recorde d SARS-CoV-2 (COVID-19) mRNA BNT-162b2 vac 11/30/20 Recorde d tetanus/diphtheria/pertussis, acel(Tdap)1 04/25/11 Given 1Admin Note: vis given Medications meclizine 25 mg oral tablet 1 tablet = 25 mg, By Mouth, 3 times a day, PRN for dizziness, # 21 tablet, 0 Refills, Maintenance, 06/03/22 11:06:00 EDT, Tablet, [id number], Partial fill upon patient request if the prescription is for a schedule II opioid drug., 162, cm, . Start Date: 06/03/22 Stop Date: 06/10/22 Status: Orderedzolpidem 10 mg oral tablet 1 tablet = 10 mg, By Mouth, Daily at bedtime, PRN as needed for insomnia, for 30 days, # 30 tablet, 0 Refills, Acute 07/13/22 9:42:00 EST, 06/13/22 9:42:00 EDT, Tablet, [facility]/pharmacy #[id number], Partial fillupon patient request if the prescription is for a... Start Date: 06/13/22 Stop Date: 07/13/22 Status: Orderedzolpidem 6.25 mg oral tablet, extended release 1 tablet = 6.25 mg, By Mouth, Daily at bedtime, PRN as needed for sleep, # 12 tablet, 0 Refills, Maintenance, 05/14/22 16:59:00 EDT, ER Tablet, [facility]/pharmacy #[id number], Partial fill upon patient request if the prescription is for a schedule II opioid drug.... Start Date: 05/14/22 Status: Ordered Problem List Condition Confirmation Course Effective Dates Status Health Stat us Informant Achilles tendinosis Confirmed Active of left lower extremity JAIMIE (generalized Confirmed Active anxiety disorder) Insomnia Confirmed Active Obese class II Confirmed Active Recurrent Confirmed Active loss Tension headache Confirmed Active Urethral Confirmed Active Diverticulum Social History Social History Type Response Smoking Status Never smoker entered on: 11/16/13 Sex Patient Care team information PersonnelName: Maddison VU, [facility] Address: Address: [address] [facility] [address] [place], [place] [address]
--- OUTSIDE RECORDS SUMMARY | 2022-07-12 16:36 | XMS_ITS | Continuity of Care Document ---
:1980 Author Organization [facility] Address [address] [place] [address], 4th Floor [address] [place] [address]- Care Team Providers Name Role Phone Not on Staff, PCP Primary Care Physician Unavailable [place] [facility] [place] Date(s): 09/07/19 - 09/17/19 [facility] [address] [place] [address], 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
--- OUTSIDE RECORDS SUMMARY | 2022-07-12 16:36 | XMS_ITS | Continuity of Care Document ---
:1980 Author Organization [facility] Address [address] [place] [address], [facility] Floor [address] [place] [address]- Care Team Providers Name Role Phone Not on Staff, PCP Primary Care Physician Unavailable Encounter [facility] Date(s): 08/08/19 - 09/21/19 [facility] [address] [place] [address], [facility] Floor [address] [place] [address]- [facility] Attending Physician: Kerri Guerrero MD Allergies, Adverse [...]
--- OUTSIDE RECORDS SUMMARY | 2022-07-12 16:36 | XMS_ITS | Continuity of Care Document ---
:1980 Author Organization [facility] Address [address] [facility], 4th Floor [address] [place] [address]- Care Team Providers Name Role Phone Not on Staff, PCP Primary Care Physician Unavailable Encounter [facility] [place] [place] Date(s): 05/30/20 - 06/06/20 [facility] [address], 4th Floor [address] [place] [address]- [facility] Attending Physician: Kerri Guerrero MD Referring Physician: [...] 06/04/20 11:01:00 EDT, [facility] to [id number], 162.56, cm, 06/04/20 8:39:00 EDT, Height, 96... 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
--- OUTSIDE RECORDS SUMMARY | 2022-07-12 16:36 | XMS_ITS | Continuity of Care Document ---
:1980 Author Organization [facility] Adult Address [address] [place] [address]- Care Team Providers Name Role Phone Maddison VU, [facility] Primary Care Physician En[place] [facility] [place] Date(s): 01/07/22 - 02/06/22 [facility] Adult [address] [place] [address]- [place] Allergies, Adverse Reactions, Alerts Substance Reaction Severity Status shellfish facial swelling Active Bee Stings SOB/localized swelling Active Immunizations Given and Recorded Vaccine Date Status Refusal Reason SARS-CoV-2 (COVID-19) mRNA BNT-162b2 vac 07/26/21 Recorde d SARS-CoV-2 (COVID-19) mRNA BNT-162b2 vac 12/21/20 Recorde d SARS-CoV-2 (COVID-19) mRNA BNT-162b2 vac 11/30/20 Recorde d tetanus/diphtheria/pertussis, acel(Tdap)1 04/25/11 Given 1Admin Note: vis given Medications predniSONE 50 mg oral tablet 1 tablet = 50 mg, By Mouth, Daily, # 5 tablet, 0 Refills, Maintenance, 01/29/22 14:14:00 EDT, Tablet, [id number], Partial fill upon patient request if the prescription is for a schedule II opioid drug., 162.56, cm, 01/29/22 13:50:00 EDT, Robyn... Start Date: 01/29/22 Stop Date: 02/03/22 Status: Orderedzolpidem 6.25 mg oral tablet, extended [...]
--- OUTSIDE RECORDS SUMMARY | 2022-07-12 16:36 | XMS_ITS | Continuity of Care Document ---
:1980 Author Organization [facility] Adult Address [address] [place] [address]- Care Team Providers Name Role Phone Ryan EUCEDA, Shilpa Tellez Primary Care Physician [place] [facility] [place] - 12/14/21 [facility] Adult [address] [place] [address]- Allergies, Adverse Reactions, Alerts Substance Reaction Severity [...] 12/09/21 15:19:00 EDT, Route to Pharmacy Electronically, [facility]/pharmacy #[id number], Partial fill upon patientrequest if the [...] 5 Refills, Maintenance, 12/09/21 8:38:00 EDT, Tablet, [facility]/pharmacy #[id number], Partial fill upon patient request [...]
--- OUTSIDE RECORDS SUMMARY | 2022-07-12 16:36 | XMS_ITS | Continuity of Care Document ---
:1980 Author Organization [facility] Address [address] [facility], 4th Floor [address] [place] [address]- Care Team Providers Name Role Phone Not on Staff, PCP Primary Care Physician Unavailable Encounter [facility] Date(s): 10/08/20 - 11/07/20 [facility] [address] [facility], 4th Floor [address] [place] [address] Attending Physician: Nayely Hoover Admitting Physician: Nayely [...] 06/04/20 11:01:00 EDT, Route to Pharmacy Electronically, [facility]/pharmacy #[id number], 162.56, cm, 06/04/20 8:39:00 EDT, Height, [...]
--- OUTSIDE RECORDS SUMMARY | 2022-07-12 16:37 | XMS_ITS | Continuity of Care Document ---
:1980 Author Organization [facility] Address [address] [place] [address]- Care Team Providers Name Role Phone Dorothy Washburn MD Primary Care Physician [place] [facility] [place] Date(s[place] 04/08/22 - 04/08/[address] [address]- Discharge Disposition: A-D/C Walkout Attending Physician: Not on Staff, Attending MD Admitting Physician: Not on Staff, Admitting MD Referring Physician: Not on Staff, Referring [...] 05/08/22 16:00:00 EDT, 02/07/22 16:00:00 EDT, Tablet, [facility]/pharmacy #[id number], Partial fill upon patient request if the prescription is for... Start Date: 02/07/22 Stop Date: 05/08/22 Status: Orderedzolpidem 6.25 mg oral tablet, extended release 1 tablet = 6.25 mg, By Mouth, Daily at bedtime, PRN as needed for sleep, # 12 tablet, 0 Refills, Maintenance, 01/06/22 8:23:00 EDT, ER Tablet, [facility]/pharmacy #[id number], Partial fill upon patient request if the prescription is for a schedule II opioid drug.,... 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 Patient describes dizziness as 2-10 minutes at a time without any other associated symptoms. Last night developed R shoulder pain, NKI.; Reason: Pain; Clinical Question(s): Fracture COMPARISON: None. FINDINGS: No fracture or dislocation. Corticated calcification seen at the rotator cuff, likely sequela of tendinosis or tendinopathy. There are degenerative changes of the acromioclavicular joint with chronic mild subluxation. IMPRESSION: No acute fracture or dislocation of the shoulder. WSN: [id number] Ordering Physician: Riccardo Berumen Dictated By: Li Vargas MD Dictated Date/Time: 04/08/22 5:03 pm Reviewed By: Li Vargas MD Signed By: Li Vargas MD Signed Date/Time: 04/08/22 5:03 pm Transcribed By: LUNA Transcribed Date/Time: 04/08/22 5:02 pm Vital Signs Most recent to oldest [Reference 1 2 3 Range]: Oxygen Saturation [94-100 %] 96 % 96 % 99 % (04/08/22 9:49 PM) (04/08/22 7:57 PM) (04/08/22 5:10 P M) Pulse Rate [55-90 bpm] 83 bpm 86 bpm 86 bpm (04/08/22 9:49 PM) (04/08/22 7:57 PM) (04/08/22 5:10 P M) Blood Pressure [90-138/55-84 mm 124/66 mm Hg 120/61 mm Hg 123/68 mm Hg Hg] (04/08/22 9:49 PM) (04/08/22 7:57 PM) (04/08/22 5:10 P M) Respiratory Rate [16-30 br/min] 16 br/min (04/08/22 3:14 PM) Temperature [96.8-100.4 DegF] 99.4 DegF 99.2 DegF 99 .7 DegF (04/08/22 9:49 PM) (04/08/22 7:57 PM) (04/08/22 5:10 P M) Mode of Delivery (Oxygen) Room air Room air Room a ir (04/08/22 9:49 PM) (04/08/22 7:57 PM) (04/08/22 5:10 P M) Blood pressure sites Arm, right Arm, right Arm, left (04/08/22 9:49 PM) (04/08/22 7:57 PM) (04/08/22 5:10 P M) Temperature Route Temporal Temporal Oral (04/08/22 9:49 PM) (04/08/22 7:57 PM) (04/08/22 5:10 P M) Social History Social History Type Response Smoking Status Never smoker entered on: 11/16/13 Sex
--- OUTSIDE RECORDS SUMMARY | 2022-07-12 16:37 | XMS_ITS | Continuity of Care Document ---
:1980 Author Organization [facility] Address [address] [facility], 4th Floor [address] [place] [address]- Care Team Providers Name Role Phone Not on Staff, PCP Primary Care Physician Unavailable [place] [facility] [place] 10/07/19 - 10/14/19 [facility] [address] [facility], 4th Floor [address] [place] [address]- [facility] Attending Physician: Kerri Guerrero MD Allergies, Adverse [...] 10/05/19 7:46:00 EST, Route to Pharmacy Electronically, [facility]/pharmacy #[id number], 167.64, cm, 10/05/19 7:19:00 EST, Height, 99.8, kg, 0... Start Date: 10/05/19 Status: Orderedibuprofen 600 mg oral tablet 600 mg, 1, tablet, By Mouth, Every 6 hours, # 30 tablet, Refills 0, Tot. Refills 0, Acute 11/04/19 0:00:00 EST, 10/05/19 7:46:00 EST, Route to Pharmacy Electronically, [facility]/pharmacy #[id number], 167.64, cm, 10/05/19 7:19:00 EST, Height, 99.8, kg, 10/03/19 14... Start Date: 10/05/19 Stop Date: 11/04/19 Status: OrderedSenna 8.6 mg oral tablet 17.2 mg, 2, tablet, By Mouth, Daily at bedtime, PRN, # 20 tablet, Refills 0, Tot. Refills 0, Acute, for constipation, 11/04/19 0:00:00 EST, 10/05/19 7:46:00 EST, Route to Pharmacy Electronically, [facility]/pharmacy #[id number] Tablet, 167.64, cm, 10/05/19 7:19:00... Start Date: 10/05/19 Stop Date: 11/04/19 Status: Orderedsimethicone 80 mg oral tablet 1 tablet = 80 mg, Chew, 3 times a day after meals and bedtime, PRN for gas, # 60 tablet, 0 Refills, Acute 11/04/19 0:00:00 EST, 10/05/19 7:46:00 EST, Tablet, [facility]/pharmacy #[id number], 167.64, cm, 10/05/19 7:19:00 EST, Height, 99.8, kg, 10/03/19 14:43:00 EST... Start Date: 10/05/19 Stop Date: 11/04/19 Status: OrderedTylenol 325 mg oral tablet 650 mg, 2, tablet, By Mouth, Every 4 hours, PRN, # 120 tablet, Refills 0, Tot. Refills 0, Acute 11/04/19 0:00:00 EST, for pain, 10/05/19 7:46:00 EST, Route to Pharmacy Electronically, [facility]/pharmacy #[id number], 167.64, cm, 10/05/19 7:19:00 EST, Height, 99.8,... Start Date: 10/05/19 Stop Date: 11/04/19 Status: Ordered Problem List Condition Effective Dates Status Health Status Informant Recurrent loss(Confirmed) Active Urethral Diverticulum(Confirmed) Active Vital Signs Most recent to oldest [Reference Range]: 1 Height 167.64 cm (10/07/19 11:40 AM) Social History Social History Type Response Smoking Status Never smoker entered on: 11/16/13 Sex
--- OUTSIDE RECORDS SUMMARY | 2022-07-12 16:37 | XMS_ITS | Continuity of Care Document ---
:1980 Author Organization [facility] Address [address] [facility], 4th Floor [address] [place] [address]- Care Team Providers Name Role Phone Not on Staff, PCP Primary Care Physician Unavailable Encounter [facility] [place] Date(s): 09/19/20 - 10/19/20 [facility] [address] [facility], 4th Floor [address] [place] [address] Allergies, Adverse Reactions, Alerts Substance Reaction Severity [...] 0 Refills, Maintenance, 06/04/20 11:00:00 EDT, Tablet, [facility]/pharmacy #[id number], 162.56, cm, 06/04/20 8:39:00 EDT, Height, [...] 06/04/20 11:01:00 EDT, Route to Pharmacy Electronically, [facility]/pharmacy #[id number], 162.56, cm, 06/04/20 8:39:00 EDT, Height, [...]
--- OUTSIDE RECORDS SUMMARY | 2022-07-12 16:37 | XMS_ITS | Continuity of Care Document ---
:1980 Author Organization [facility] Adult Address [address] [place] [address]- Care Team Providers Name Role Phone Maddison VU, [facility] Primary Care Physician [place] [facility] [place]s): 06/03/22 - 07/03/22 [facility] Adult [address] [place] [address]- Attending Physician: Nayely Hoover Admitting Physician: Nayely [...] 0 Refills, Maintenance, 06/03/22 11:06:00 EDT, Tablet, [facility]/pharmacy #[id number], Partial fill upon patient request if the prescription is for a schedule II opioid drug., 162, cm, 10... Start Date: 06/03/22 Stop Date: 06/10/22 Status: Orderedzolpidem 10 mg oral tablet 1 tablet = 10 mg, By Mouth, Daily at bedtime, PRN as needed for insomnia, for 30 days, # 30 tablet, 0 Refills, Acute 07/13/22 9:42:00 EST, 06/13/22 9:42:00 EDT, Tablet, [facility]/pharmacy #[id number], Partial fillupon patient request if the prescription is for a... Start Date: 06/13/22 Stop Date: 07/13/22 Status: Orderedzolpidem 6.25 mg oral tablet, extended release 1 tablet = 6.25 mg, By Mouth, Daily at bedtime, PRN as needed for sleep, # 12 tablet, 0 Refills, Maintenance, 05/14/22 16:59:00 EDT, ER Tablet, [facility]/pharmacy #[id number], Partial fill upon [...] 11/16/13 Sex Patient Care team information PersonnelName: Dorothy Washburn MD Address: Address: [address] [place], [place] [address]
--- OUTSIDE RECORDS SUMMARY | 2022-07-12 16:37 | XMS_ITS | Continuity of Care Document ---
:1980 Author Organization [facility] Adult Address [address] [place] [address]- Care Team Providers Name Role Phone Dorothy Washburn MD Primary Care Physician [place] [facility] [place] 04/08/22 - 05/08/22 [facility] Adult [address] [place] [address]- Allergies, Adverse Reactions, Alerts Substance Reaction Severity [...] Refills, Soft Stop, 02/17/22 13:46:00 EDT, Lotion, [facility]/pharmacy #[id number], Partial fill upon patient request [...] Status Never smoker entered on: 11/16/13 Sex Care Team PersonnelName: Maddison VU, [facility] Address: [address] [place] [address] [address] [place], [place] [address]
--- OUTSIDE RECORDS SUMMARY | 2022-07-12 16:37 | XMS_ITS | Continuity of Care Document ---
:1980 Author Organization [facility] Address [address] [facility], 4th Floor [address] [place] [address]- Care Team Providers Name Role Phone Ryan EUCEDA, Shilpa Tellez Primary Care Physician [place] [facility] [place]21 - 03/22/21 [facility] [address] [facility], 4th Floor [address] [place] [id number] Attending Physician: Kerri Guerrero MD Allergies, Adverse [...]
--- OUTSIDE RECORDS SUMMARY | 2022-07-12 16:37 | XMS_ITS | Continuity of Care Document ---
:1980 Author Organization [facility] Address [address] [facility], 4th Floor [address] [place] [address]- Care Team Providers Name Role Phone Ryan EUCEDA, Shilpa Tellez Primary Care Physician [phone] Encounter [facility] [place] Date(s): 02/19/21 - 03/21/21 [facility] [address] [facility], 4th Floor [address] [place] [id number] Allergies, Adverse Reactions, Alerts Substance Reaction Severity [...]
--- OUTSIDE RECORDS SUMMARY | 2022-07-12 16:37 | XMS_ITS | Continuity of Care Document ---
:1980 Author Organization [facility] Adult Address [address] [place] [address]- Care Team Providers Name Role Phone Dorothy Washburn MD Primary Care Physician [place] [facility] [place] 01/28/22 - 02/27/22 [facility] Adult [address] [place] [address]- [place] Allergies, Adverse Reactions, Alerts Substance Reaction [...] Refills, Soft Stop, 02/17/22 13:46:00 EDT, Lotion, [facility]/pharmacy #[id number], Partial fill upon patient request [...] 05/08/22 16:00:00 EDT, 02/07/22 16:00:00 EDT, Tablet, [facility]/pharmacy #[id number], Partial fill upon patient request if the prescription is for... Start Date: 02/07/22 Stop Date: 05/08/22 Status: Orderedzolpidem 6.25 mg oral tablet, extended release 1 tablet = 6.25 mg, By Mouth, Daily at bedtime, PRN as needed for sleep, # 12 tablet, 0 Refills, Maintenance, 01/06/22 8:23:00 EDT, ER Tablet, [facility]/pharmacy #[id number], Partial fill upon patient request [...]
--- OUTSIDE RECORDS SUMMARY | 2022-07-12 16:37 | XMS_ITS | Continuity of Care Document ---
:1980 Author Organization [facility] Address [address] [place] [address]- Care Team Providers Name Role Phone Not on Staff, PCP Primary Care Physician Unavailable [place] [facility] [place](s[place] 08/22/20 - 08/22/[address] [address]- Discharge Disposition: A-D/C Home Attending Physician: Jessy Keyes MD Admitting Physician: Jessy Keyes MD Referring Physician: Not on Staff, Referring [...] 06/04/20 11:01:00 EDT, Route to Pharmacy Electronically, [facility]/pharmacy #[id number], 162.56, cm, 06/04/20 8:39:00 EDT, Height, 96... Start Date: 06/04/20 Status: Ordered Problem List Condition Effective Dates Status Health Status Informant Recurrent loss(Confirmed) Active Urethral Diverticulum(Confirmed) Active Vital Signs Most recent to oldest [Reference Range]: 1 Oxygen Saturation [94-100 %] 100 % (08/22/20 3:23 PM) Pulse Rate [55-90 bpm] 79 bpm (08/22/20 3:23 PM) Blood Pressure [90-138/55-84 mm Hg] 129/97 mm Hg (08/22/20 3:23 PM) Respiratory Rate [16-30 br/min] 20 br/min (08/22/20 3:23 PM) Mode of Delivery (Oxygen) Room air (08/22/20 3:23 PM) Blood pressure sites Arm, left (08/22/20 3:23 PM) Social History Social History Type Response Smoking Status Never smoker entered on: 11/16/13 Sex
--- OUTSIDE RECORDS SUMMARY | 2022-07-12 16:37 | XMS_ITS | Continuity of Care Document ---
:1980 Author Organization [facility] Address [address] [place] [address]- Care Team Providers Name Role Phone Maddison VU, [facility] Primary [facility] Phys[facility] [place] [facility] [place] 05/23/22 - 06/22/22 [facility] [address] [place] [address]- Allergies, Adverse Reactions, Alerts Substance Reaction Severity [...] 07/13/22 9:42:00 EST, 06/13/22 9:42:00 EDT, [facility]t, [id number], [facility] fillupon patient request if the prescription is for a... Start Date: 06/13/22 Stop Date: 07/13/22 Status: Orderedzolpidem 6.25 mg oral tablet, extended release 1 tablet = 6.25 mg, By Mouth, Daily at bedtime, PRN as needed for sleep, # 12 tablet, 0 Refills, Maintenance, 05/14/22 16:59:00 EDT, ER Tablet, [facility]/pharmacy #[id number], Partial fill upon patient [...] Sex Patient Care team information [facility]: [facility] Address: Address: [address] [place] [address] [address] [place], [place] [address]
--- OUTSIDE RECORDS SUMMARY | 2022-07-12 16:37 | XMS_ITS | Continuity of Care Document ---
:1980 Author Organization [facility] Adult Address [address] [place] [address]- Care Team Providers Name Role Phone Ryan EUCEDA, Shilpa Tellez Primary Care Physician [phone] Encounter [facility] [place] Date(s): 12/09/21 - 12/16/21 [facility] Adult [address] [place] [address]- Attending Physician: Not on Staff, Attending MD [...] 12/09/21 15:19:00 EDT, Route to Pharmacy Electronically, [facility]/pharmacy #[id number], Partial fill upon patientrequest if the prescription [...] 5 Refills, Maintenance, 12/09/21 8:38:00 EDT, Tablet, [facility]/pharmacy #[id number], Partial fill upon patient request if the prescription is for a schedule II opioid drug., 162.56, cm, 12/09/21 8:17:00 EDT, Height... Start Date: 12/09/21 Status: Ordered Problem List Condition Effective Dates Status Health Status Informant Achilles tendinosis of left lower Active extremity(Confirmed) Obese class II(Confirmed) Active Recurrent loss(Confirmed) Active Tension headache(Confirmed) Active Urethral Diverticulum(Confirmed) Active Vital Signs Most recent to oldest [Reference Range]: 1 Height 162.56 cm (12/09/21 8:17 AM) Weight 99 kg (12/09/21 8:17 AM) Oxygen Saturation [94-100 %] 99 % (12/09/21 8:17 AM) Pulse Rate [55-90 bpm] 85 bpm (12/09/21 8:17 AM) Body Mass Index [18.5-24.99] 37.46 *>HHI* (12/09/21 8:17 AM) Blood Pressure [90-138/55-84 mm Hg] 127/82 mm Hg (12/09/21 8:17 AM) Mode of Delivery (Oxygen) Room air (12/09/21 8:17 AM) Blood pressure sites Arm, left (12/09/21 8:17 AM) Weight Obtained Via Standing scale (12/09/21 8:17 AM) Social History Social History Type Response Smoking Status Never smoker entered on: 11/16/13 Sex
--- OUTSIDE RECORDS SUMMARY | 2022-07-12 16:37 | XMS_ITS | Continuity of Care Document ---
:1980 Author Organization [facility] Adult Address [address] [place] [address]- Care Team Providers Name Role Phone Dorothy Washburn MD Primary Care Physician [place] [facility] [place] 01/[place]22 - 02/27/22 [facility] Adult [address] [place] [address]- [place] Allergies, Adverse Reactions, Alerts Substance Reaction [...] Refills, Soft Stop, 02/17/22 13:46:00 EDT, Lotion, [facility]/pharmacy #[id number], Partial fill upon patient [...] 05/08/22 16:00:00 EDT, 02/07/22 16:00:00 EDT, Tablet, [facility]/pharmacy #[id number], Partial fill upon patient request if the prescription is for... Start Date: 02/07/22 Stop Date: 05/08/22 Status: Orderedzolpidem 6.25 mg oral tablet, extended release 1 tablet = 6.25 mg, By Mouth, Daily at bedtime, PRN as needed for sleep, # 12 tablet, 0 Refills, Maintenance, 01/06/22 8:23:00 EDT, ER Tablet, [facility]/pharmacy #[id number], Partial fill upon patient [...]
--- OUTSIDE RECORDS SUMMARY | 2022-07-12 16:37 | XMS_ITS | Continuity of Care Document ---
:1980 Author Organization [facility] Address [address] [place] [address]- Care Team Providers Name Role Phone Not on Staff, PCP Primary Care Physician Unavailable Encounter [facility] [place] Date(s): 10/03/19 - 10/05/[address] [address]- [facility] Discharge Disposition: A-D/C Home Attending Physician: Kerri [...] 10/05/19 7:46:00 EST, Route to Pharmacy Electronically, [facility]/pharmacy #[id number], 167.64, cm, 10/05/19 7:19:00 EST, Height, 99.8, kg, 0... Start Date: 10/05/19 Status: Orderedibuprofen 600 mg oral tablet 600 mg, 1, tablet, By Mouth, Every 6 hours, # 30 tablet, Refills 0, Tot. Refills 0, Acute 11/04/19 0:00:00 EST, 10/05/19 7:46:00 EST, Route to Pharmacy Electronically, [facility]/pharmacy #[id number], 167.64, cm, 10/05/19 7:19:00 EST, Height, 99.8, kg, 10/03/19 14... Start Date: 10/05/19 Stop Date: 11/04/19 Status: OrderedoxyCODONE 5 mg oral tablet 5 mg, 1, tablet, By Mouth, Every 6 hours, PRN, # 10 tablet, Refills 0, Tot. Refills 0, Acute 10/08/19 0:00:00 EST, as needed for pain, 10/05/19 7:46:00 EST, [id number] fill upon patient request, 167.6... Start Date: 10/05/19 Stop Date: 10/08/19 Status: OrderedSenna 8.6 mg oral tablet 17.2 mg, 2, tablet, By Mouth, Daily at bedtime, PRN, # 20 tablet, Refills 0, Tot. Refills 0, Acute, for constipation, 11/04/19 0:00:00 EST, 10/05/19 7:46:00 EST, [id number], 167.64, cm, 10/05/19 7:19:00... Start Date: 10/05/19 Stop Date: 11/04/19 Status: Orderedsimethicone 80 mg oral tablet 1 tablet = 80 mg, Chew, 3 times a day after meals and bedtime, PRN for gas, # 60 tablet, 0 Refills, Acute 11/04/19 0:00:00 EST, 10/05/19 7:46:00 EST, Tablet, [facility]/pharmacy #[id number], 167.64, cm, 10/05/19 7:19:00 EST, Height, 99.8, kg, 10/03/19 14:43:00 EST... Start Date: 10/05/19 Stop Date: 11/04/19 Status: OrderedTylenol 325 mg oral tablet 650 mg, 2, tablet, By Mouth, Every 4 hours, PRN, # 120 tablet, Refills 0, Tot. Refills 0, Acute 11/04/19 0:00:00 EST, for pain, 10/05/19 7:46:00 EST, [id number] 167.64, cm, 10/05/19 7:19:00 EST, Height, 99.8,... Start Date: 10/05/19 Stop Date: 11/04/19 Status: Ordered Problem List Condition Effective Dates Status Health Status Informant Recurrent loss(Confirmed) Active Urethral Diverticulum(Confirmed) Active Vital Signs Most recent to oldest 1 2 3 [Reference Range]: Height 167.64 cm 167.64 cm 167.64 cm (10/05/19 7:10 AM) (10/04/19 11:24 PM) (10/04/19 7:14 PM) Weight 99.8 kg 99.9 kg (10/03/19 2:41 PM) (09/30/19 9:19 AM) Oxygen Saturation [94-100 %] 96 % 95 % 95 % (10/05/19 7:10 AM) (10/04/19 11:24 PM) (10/04/19 7:14 PM) Pulse Rate [55-90 bpm] 80 bpm 91 bpm 94 bpm (10/05/19 7:10 AM) *H* *H* (10/04/19 11:24 PM) (10/04/19 7:14 P M) Body Mass Index [18.5-24.99] 35.51 35.55 *>HHI* *>HHI* (10/03/19 2:41 PM) (09/30/19 9:19 AM) Blood Pressure [90-138/55-84 mm 114/70 mm Hg 114/76 mm Hg 121/76 mm Hg Hg] (10/05/19 7:10 AM) (10/04/19 11:24 PM) (10/04/19 7:14 PM) Respiratory Rate [16-30 br/min] 18 br/min 19 br/min 18 br/min (10/05/19 7:10 AM) (10/05/19 6:00 AM) (10/05/19 6:00 A M) Temperature [96.8-100.4 DegF] 98.0 DegF 98.2 DegF 98 .7 DegF (10/05/19 7:10 AM) (10/04/19 11:24 PM) (10/04/19 7:14 PM) Liters per Minute 6 L/min 6 L/min 6 L/min (10/03/19 11:30 AM) (10/03/19 11:15 AM) (10/03/19 11:0 0 AM) Mode of Delivery (Oxygen) Room air Room air Room a ir (10/05/19 7:10 AM) (10/04/19 11:24 PM) (10/04/19 7:14 PM) Blood pressure sites Arm, left Arm, right Arm, right (10/05/19 7:10 AM) (10/04/19 11:24 PM) (10/04/19 7:14 PM) Temperature Route Oral Oral Oral (10/05/19 7:10 AM) (10/04/19 11:24 PM) (10/04/19 7:14 PM) Dry Weight 99.8 kg 99.8 kg 99.9 kg (10/03/19 2:41 PM) (10/03/19 6:27 AM) (09/30/19 9:19 AM) Weight Obtained Via Standing scale (09/30/19 9:19 AM) Dry Weight Obtained Via Standing scale Standing scale (10/03/19 6:27 AM) (09/30/19 9:19 AM) Sensory deficits None (10/03/19 2:41 PM) Mobility assistance Independent Independent (10/03/19 2:41 PM) (09/30/19 9:23 AM) Social History Social History Type Response Smoking Status Never smoker entered on: 11/16/13 Sex
--- OUTSIDE RECORDS SUMMARY | 2022-07-12 16:37 | XMS_ITS ---
:1980 Author Care Team Providers Name Role Phone Ramila Mitchell Primary Care Provider Unavailable Allergies Code Code System Name Reaction Severity Status Onset NKDA ? Medications Name Status Start Date Stop Date ? ? estradiol 2 mg tablet Active ? Not availa ble TAKE 1 TABLET BY MOUTH TWICE A DAY FOR 3 WEEKS medroxyprogesterone 10 mg tablet Active ? Not available TAKE 1 TABLET BY MOUTH EVERY DAY FOR 10 DAYS FOLLOWING ESTRACE misoprostol 200 mcg tablet Active ? Not a vailable INSERT 1 TABLET VAGINALLY THE EVENING BEFORE PROCEDURE oxycodone 5 mg tablet Active ? Not availa ble TAKE 1 TO 2 TABLETS BY MOUTH EVERY 4 TO 6 HOURS NEEDED FOR P OST OP PAIN silver sulfadiazine 1 % topical cream Active ? Not available tramadol 50 mg tablet Active ? Not availa ble Tylenol Active ? Not available Problems None recorded. Procedures None recorded. Results Lab Results None recorded. Past Encounters None recorded. Social History Tobacco Smoking Status Never Smoker Vaccine List None recorded. Plan of Care Reminders Provider Appointments None recorded. ? ? Lab None recorded. ? ? Referral None recorded. ? ? Procedures None recorded. ? ? Surgeries None recorded. ? ? Imaging None recorded. ? ? Vitals Blood Pressure 129/88 mm[Hg]
--- OUTSIDE RECORDS SUMMARY | 2022-07-12 16:37 | XMS_ITS | Continuity of Care Document ---
:1980 Author Organization [facility] Adult Address [address] [place] [address]- Care Team Providers Name Role Phone Dorothy Washburn MD Primary Care Physician [place] [facility] [place] Date(s): 02/17/22 - 03/19/22 [facility] Adult [address] [place] [address]- Attending Physician: Nayely Hoover Admitting Physician: Nayely [...] 05/08/22 16:00:00 EDT, 02/07/22 16:00:00 EDT, Tablet, [facility]/pharmacy #[id number], Partial fill upon patient request if the prescription is for... Start Date: 02/07/22 Stop Date: 05/08/22 Status: Orderedzolpidem 6.25 mg oral tablet, extended release 1 tablet = 6.25 mg, By Mouth, Daily at bedtime, PRN as needed for sleep, # 12 tablet, 0 Refills, Maintenance, 01/06/22 8:23:00 EDT, ER Tablet, [facility]/pharmacy #[id number], Partial fill upon patient request [...]
--- OUTSIDE RECORDS SUMMARY | 2022-07-12 16:37 | XMS_ITS | Continuity of Care Document ---
:1980 Author Organization [facility] Address [address] [facility], 4th Floor [address] [place] [address]- Care Team Providers Name Role Phone Not on Staff, PCP Primary Care Physician Unavailable [place] [facility] [place]20 [place] 10/08/20 [facility] [address] [facility] [facility] [place] [id number] Attending Physician: Kerri Guerrero MD Allergies, [...] 0 Refills, Maintenance, 06/04/20 11:00:00 EDT, Tablet, [facility]/pharmacy #[id number], 162.56, cm, 06/04/20 8:39:00 EDT, [...] 06/04/20 11:01:00 EDT, Route to Pharmacy Electronically, [facility]/pharmacy #[id number], 162.56, cm, 06/04/20 8:39:00 EDT, [...] oldest [Reference Range]: 1 Height 162.56 cm (10/01/20 2:33 PM) Weight 96.8 kg (10/01/20 2:33 PM) Pulse Rate [55-90 bpm] 96 bpm *H* (10/01/20 2:33 PM) Body Mass Index [18.5-24.99] 36.63 *>HHI* (10/01/20 2:33 PM) Blood Pressure [90-138/55-84 mm Hg] 125/67 mm Hg (10/01/20 2:33 PM) Blood pressure sites Arm, right (10/01/20 2:33 PM) Weight Obtained Via Standing scale (10/01/20 2:33 PM) Social History Social History Type Response Smoking Status Never smoker entered on: 11/16/13 Sex
--- OUTSIDE RECORDS SUMMARY | 2022-07-12 16:37 | XMS_ITS | Continuity of Care Document ---
:1980 Author Organization [facility] Address [address] [place] [address], [address] [place] [address]- Care Team Providers Name Role Phone Not on Staff, PCP Primary Care Physician Unavailable Encounter [facility] Date(s): 09/07/19 - 09/14/19 [facility] [address] [place] [address], [facility] Floor [address] [place] [address]- [facility] Attending Physician: Kerri Guerrero MD Allergies, Adverse Reactions, Alerts Substance Reaction Severity Status shellfish Active Bee Stings Active Immunizations Given and Recorded Vaccine Date Status Refusal Reason tetanus/diphtheria/pertussis, acel(Tdap)1 04/25/11 Given 1Admin Note: vis given Problem List Condition Effective Dates Status Health Status Informant 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
--- OUTSIDE RECORDS SUMMARY | 2022-07-12 16:37 | XMS_ITS | Continuity of Care Document ---
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
--- OUTSIDE RECORDS SUMMARY | 2022-07-12 16:37 | XMS_ITS | Continuity of Care Document ---
:1980 Author Organization [facility] Adult Address [address] [place] [address]- Care Team Providers Name Role Phone Dorothy Washburn MD Primary Care Physician [place] [facility] [place] Date(s): 12/09/21 - 02/27/22 [facility] Adult [address] [place] [address]- Attending Physician: Dorothy Washburn MD Allergies, Adverse Reactions, Alerts Substance Reaction [...] 05/08/22 16:00:00 EDT, 02/07/22 16:00:00 EDT, Tablet, [facility]/pharmacy #[id number], Partial fill upon patient request if the prescription is for... Start Date: 02/07/22 Stop Date: 05/08/22 Status: Orderedzolpidem 6.25 mg oral tablet, extended release 1 tablet = 6.25 mg, By Mouth, Daily at bedtime, PRN as needed for sleep, # 12 tablet, 0 Refills, Maintenance, 01/06/22 8:23:00 EDT, ER Tablet, [facility]/pharmacy #[id number], Partial fill upon patient request [...]
--- OUTSIDE RECORDS SUMMARY | 2022-07-12 16:37 | XMS_ITS | Continuity of Care Document ---
:1980 Author Organization [facility] Address [address] [facility], 4th Floor [address] [place] [address]- Care Team Providers Name Role Phone Not on Staff, PCP Primary Care Physician Unavailable Encounter [facility] Date(s): 12/26/19 - 01/25/20 [facility] [address] [facility], 4th Floor [address] [place] [address]- [facility] Attending Physician: Nayely Hoover Admitting [...] 7:46:00 EST, Route to Pharmacy Electronically, [facility]/pharmacy #[id number], 167.64, cm, 10/05/19 7:19:00 EST, Height, 99.8, kg, 0... 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
--- OUTSIDE RECORDS SUMMARY | 2022-07-12 16:37 | XMS_ITS | Continuity of Care Document ---
:1980 Author Organization [facility] Adult Address [address] [place] [address]- Care Team Providers Name Role Phone Dorothy Washburn MD Primary Care Physician Encounter [facility] [place] Date(s): 01/29/22 - 02/05/22 [facility] Adult [address] [place] [address]- Encounter Diagnosis Contact dermatitis (Discharge Diagnosis) - 01/29/22 Attending Physician: Dorothy Washburn MD Allergies, Adverse [...] tablet, 0 Refills, Maintenance, 01/29/22 14:14:00 EDT, [place], [facility]/pharmacy #[id number], Partial fill upon patient [...] Dates Health Clinical Infor mant Status Service Contact Discharge 01/29/22 dermatitis Diagnosis Vital Signs Most recent to oldest [Reference Range]: 1 Height 162.56 cm (01/29/22 1:50 PM) Weight 100.6 kg (01/29/22 1:50 PM) Oxygen Saturation [94-100 %] 98 % (01/29/22 1:50 PM) Pulse Rate [55-90 bpm] 90 bpm (01/29/22 1:50 PM) Body Mass Index [18.5-24.99] 38.07 *>HHI* (01/29/22 1:50 PM) Blood Pressure [90-138/55-84 mm Hg] 109/72 mm Hg (01/29/22 1:50 PM) Temperature [96.8-100.4 DegF] 98.8 DegF (01/29/22 1:50 PM) Mode of Delivery (Oxygen) Room air (01/29/22 1:50 PM) Blood pressure sites Arm, right (01/29/22 1:50 PM) Temperature Route Temporal (01/29/22 1:50 PM) Weight Obtained Via Standing scale (01/29/22 1:50 PM) Social History Social History Type Response Smoking Status Never smoker entered on: 11/16/13 Sex
[2022-07-12] MEDS: Ibuprofen 600 MG TABLET PO (17:15)
[2022-07-12] MEDS: Acetaminophen 325 MG TABLET 975 MG PO (17:15)
== END 2022-07-12 17:29 | disposition home or self-care (01) ==
PROVIDERS: Emergency Provider Emergency Medicine
DX: S01.112A Laceration without foreign body of left eyelid and periocular area, initial encounter (principal); S09.90XA Unspecified injury of head, initial encounter; W20.8XXA Other cause of strike by thrown, projected or falling object, initial encounter; Y93.89 Activity, other specified; Y92.810 Car as the place of occurrence of the external cause; Y99.9 Unspecified external cause status
CPT/HCPCS: 12053; 70450; 70486; 72125; 99282; 99283; 99284

== ENCOUNTER 2023-09-29 17:22 | Emergency (ER) | payer OTHER, SELFPAY ==
[2023-09-29 17:29] VITALS: BP 125/84; PULSE 84; RESP 18; TEMP 36.3; O2SAT 98; BMI 35.3
--- NOTE | 2023-09-29 17:30 | ECG_ITS ---
Test Reason : PAIN Blood Pressure : / mmHG Vent. Rate : 075 BPM Atrial Rate : 075 BPM P-R Int : 182 ms QRS Dur : 086 ms QT Int : 402 ms P-R-T Axes : 029 -10 013 degrees QTc Int : 448 ms Normal sinus rhythm Normal ECG No previous ECGs available Referred By: Eduard Anderson Electronically Signed By:FREDY WONG MD
--- NOTE | 2023-09-29 17:30 | ED.GENADULT ---
HPI - General Adult General Chief complaint: General Medical Stated complaint: dizzy spells last few weeks migraines, leg numbnes Time Seen by Provider: 09/30/23 00:01 Source: patient Mode of arrival: ambulatory Limitations: no limitations History of Present Illness HPI narrative: Patient with Multiple complaints and increased stress with history of anxiety unable to sleep complaining of headache mostly on the r side, body aches dizziness with spinning movement for last few weeks also has nausea no urinary symptoms no fever no chills no cough did check for the COVID negative at home patient's mother has breast cancer and patient thinking about her all the time Related Data Previous Rx's Medication Instructions Recorded kwqbmkzrev-vmbofetblmufw-yfrxoczl 1 tab PO Q6H PRN haeadace #20 tabs 09/30/23 50 mg-325 mg-40 mg tablet lorazepam 1 mg tablet (Ativan) 1 mg PO BEDTIME PRN anxiety/sleep 09/30/23 #10 tabs meclizine 25 mg tablet 25 mg PO TID PRN dizziness #20 tabs 09/30/23 sumatriptan succinate 50 mg tablet 50 mg PO Q2H PRN migraine headache 09/30/23 (Imitrex) #10 tabs Allergies Allergy/AdvReac Type Severity Reaction Status Date / Time bee pollen [BEE STINGS] Allergy Unknown SWOLLEN Verified 09/29/23 17:29 shellfish derived Allergy Unknown SWELLING Verified 09/29/23 17:29 [SHELLFISH DERIVED] Review of Systems Review of Systems: Yes all other systems are reviewed and are negative PMFSH Past Medical History Medical History (Updated 09/30/23 @ 01:22 by Eliezer Gallardo MD) Anxiety Social History Social History Advance Directives: No Advance Directives Information Provided: Yes Physical Exam ED Vital Signs: Vital Signs - 24 hr 09/29/23 17:29 09/30/23 00:14 Temperature 97.3 F 98.0 F Pulse Rate 84 92 Respiratory Rate 18 18 Blood Pressure 125/84 107/73 Pulse Oximetry 98 98 Oxygen Delivery Method Room Air Room Air BMI result Body Mass Index 35.3 Appearance: Alert. Oriented X3. No acute distress. Eyes: PERRLA, No Nystagmus increased dizziness on turning head to the right side ENT: Pharynx normal. Oral Mucosa moist no temporal artery tenderness Neck: Normal inspection. Neck supple. CVS: Normal heart rate and rhythm. Pulses normal. Respiratory: No respiratory distress. Equal air entry bilateral, Abdomen: Soft and nontender. Bowel sounds are present, Skin: Skin warm and dry. Normal skin color. Normal skin turgor. Extremities: No lower extremity edema. No calf tenderness Neuro: Oriented X 3. No motor deficit. No sensory deficit.No cerebellar signs , cranial nerves II-XII intact Course Course Course Narrative: RME- 42 year old female presents for evaluation of dizziness and headaches. Plan for labs, UA, EKG Medications Administered Discontinued Medications Generic Name Dose Route Start Last Admin Trade Name Freq PRN Reason Stop Dose Admin Acetaminophen/Butalbital/Caffeine 1 tab 09/30/23 00:24 09/30/23 00:41 Butalb/Acetamin/Caff 50/325/40 Tablet PO 09/30/23 00:25 1 tab ONCE ONE Administration Meclizine HCl 25 mg 09/30/23 00:24 09/30/23 00:41 Meclizine Hcl 25 Mg Tablet PO 09/30/23 00:25 25 mg ONCE ONE Administration Ondansetron HCl 4 mg 09/30/23 00:28 09/30/23 00:41 Ondansetron Odt 4 Mg Tab.Rapdis TRANSLINGU 09/30/23 00:29 4 mg ONCE ONE Administration Sumatriptan Succinate 6 mg 09/30/23 00:24 09/30/23 00:41 Sumatriptan Succinate 6 Mg/0.5 Ml Vial SUBCUT 09/30/23 00:25 6 mg ONCE ONE Administration Medical Decision Making Medical Decision Making [facility] Narrative: Patient multiple complaints with increased stress and anxiety feel better after Imitrex headache improved feeling much better and will discharge patient home on Ativan Imitrex and meclizine Differential Diagnosis Differential Diagnoses: The differential diagnosis associated with the presentation includes Migraine headache/diarrhea/depression/vertigo Lab Data [facility] Lab Attestation statement: I reviewed the patient's lab results. 09/29/23 17:44 09/29/23 17:44 Labs: Lab Results 09/29/23 09/30/23 Range/Units 17:44 00:17 WBC 9.0 (4.8-10.8) X10*3/uL RBC 3.95 L (4.20-5.50) X10*6/uL Hgb 12.1 (12.0-16.0) g/dl Hct 36.6 L (37.0-47.0) % MCV 92.7 (80.0-98.0) fL MCH 30.6 (27.0-33.0) pg MCHC 33.1 (31.0-35.0) g/dl RDW 13.0 (11.0-16.0) % Plt Count 281 (160-400) X10*3/uL MPV 9.9 (9.4-12.3) fL Immature Gran % (Auto) 0.2 (0.0-0.4) % Neut % (Auto) 53.1 (45-73) % Lymph % (Auto) 36.3 (20-40) % Wilkinson % (Auto) 8.7 (2-11) % Eos % (Auto) 1.3 (0-4) % Baso % (Auto) 0.4 (0-2) % Lymph # (Auto) 3.3 (1.2-4.9) X10*3/uL Wilkinson # (Auto) 0.8 (0.1-1.2) X10*3/uL Eos # (Auto) 0.1 (0.0-0.4) X10*3/uL Baso # (Auto) 0.0 (0.0-0.2) X10*3/uL Abs Immat Gran (auto) 0.02 (0.00-0.03) X10*3/uL Absolute Neuts (auto) 4.8 (2.0-8.3) x10*3/uL Absolute Nucleated RBC 0.000 (0.0-0.012) X10*3/uL Nucleated RBC % (auto) 0.0 (0.0-0.2) /100WBC Sodium 136 (135-145) mmol/L Potassium 3.8 (3.3-5.1) mmol/L Chloride 107 (96-108) mmol/L Carbon Dioxide 24 (22-29) mmol/L Anion Gap 9 L (12-20) BUN 15 (9-16) mg/dL Creatinine 0.79 (0.5-1.4) mg/dL Estim Creat Clear Calc 104.2 Estimated GFR > 60 Random Glucose 103 (60-115) mg/dL Calcium 8.9 (8.4-10.2) mg/dL Total Bilirubin 0.3 (0.0-1.0) mg/dL AST 15 (5-31) U/L ALT 13 (0-31) U/L Alkaline Phosphatase 38 L (39-117) U/L Total Protein 6.4 L (6.5-8.0) g/dL Albumin 3.8 (3.5-5.0) g/dL Lipase 18 (8-78) U/L Urine Color Yellow Urine Appearance Clear Urine pH 7.0 (5.0-9.0) Ur Specific [place] 1.010 (1.005-1.025) Urine Protein Negative (Neg-Trace) mg/dL Urine Glucose (UA) Negative (Negative) mg/dL Urine Ketones Negative (Negative) mg/dL Urine Blood Negative (Negative) Urine Nitrite Negative (Negative) Ur Leukocyte Esterase Negative (Negative) Urine RBC 0-2 (0-2) /HPF Urine WBC 0-5 (0-5) /HPF Ur Squamous Epith Cells 3-5 (0-2) /HPF Urine Bacteria None Seen (None Seen) Hyaline Casts 0-2 (0-2) /LPF COVID-19 (PHANI) Negative (Negative) COVID-19 Clin Com See Note Influenza Type A (RUBY) Negative (Negative) Influenza Type B (RUBY) Negative (Negative) Influenza A & B Note See Note Independent Interpretation I performed an independent interpretation of an: CT Scan Radiology Impression Discussion of test interpretation with radiology: I have reviewed the radiologist's reading. Discharge Plan Discharge Clinical Impression: Headache, migraine, Anxiety, Benign paroxysmal positional vertigo Patient Disposition: Home, Self-Care Instructions: Migraine Headache (ED), Benign Paroxysmal Positional Vertigo (ED), Anxiety (ED) Additional Instructions: Rest at home Take medication as prescribed Follow up with PCP if not better Prescriptions: New sumatriptan succinate [Imitrex] 50 mg tablet 50 mg PO Q2H PRN (Reason: migraine headache) Qty: 10 0RF Rx Instructions: do not exceed 2 doses per 24 hrs yyhmwpnskm-qpadlyoykfhuc-dkxe 50-325-40 mg tablet 1 tab PO Q6H PRN (Reason: haeadace) Qty: 20 0RF lorazepam [Ativan] 1 mg tablet 1 mg PO BEDTIME PRN (Reason: anxiety/sleep) Qty: 10 0RF meclizine 25 mg tablet 25 mg PO TID PRN (Reason: dizziness) Qty: 20 0RF
[2023-09-29 17:48] LABS: MANUAL DIFF FLAG NO
[2023-09-29 17:55] LABS: Basophils Percent Auto 0.4 % (0-2); Eosinophils Absolute Auto 0.1 X10*3/uL (0.0-0.4); Eosinophils Percent Auto 1.3 % (0-4); Hematocrit 36.6 % (37.0-47.0); Hemoglobin 12.1 g/dl (12.0-16.0); Imm Gran Abs Auto 0.02 X10*3/uL (0.00-0.03); Imm Gran Pct Auto 0.2 % (0.0-0.4); Lymphocytes Absolute Auto 3.3 X10*3/uL (1.2-4.9); Lymphocytes Percent Auto 36.3 % (20-40); Mean Corpuscular HGB Conc 33.1 g/dl (31.0-35.0); Mean Corpuscular Hemoglobin 30.6 pg (27.0-33.0); Mean Corpuscular Volume 92.7 fL (80.0-98.0); Mean Platelet Volume 9.9 fL (9.4-12.3); Monocytes Absolute Auto 0.8 X10*3/uL (0.1-1.2); Monocytes Percent Auto 8.7 % (2-11); Neutrophils Absolute Auto 4.8 x10*3/uL (2.0-8.3); Neutrophils Percent Auto 53.1 % (45-73); Platelet Count 281 X10*3/uL (160-400); Red Blood Count 3.95 X10*6/uL (4.20-5.50)
[2023-09-29 18:03] LABS: Alanine Aminotransferase 13 U/L (0-31); Albumin Level 3.8 g/dL (3.5-5.0); Alkaline Phosphatase 38 U/L (39-117); Anion Gap 9 (12-20); Aspartate Amino Transferase 15 U/L (5-31); Bilirubin Total 0.3 mg/dL (0.0-1.0); Blood Urea Nitrogen 15 mg/dL (9-16); Calcium 8.9 mg/dL (8.4-10.2); Carbon Dioxide 24 mmol/L (22-29); Chloride 107 mmol/L (96-108); Creatinine Clr Calc Pharmacy 104.2; Estimated Glomerular Filt Rate > 60; Glucose Random 103 mg/dL (60-115); Lipase 18 U/L (8-78); Potassium 3.8 mmol/L (3.3-5.1); Sodium 136 mmol/L (135-145); Total Protein 6.4 g/dL (6.5-8.0)
[2023-09-29 18:05] LABS: COVID-19 Test Negative (Negative); IDNOW Serial# 55D5AD1C
[2023-09-29 18:06] LABS: IDNOW Serial# 16C4AD1C; Influenza A Negative (Negative); Influenza B2 Negative (Negative)
--- OUTSIDE RECORDS SUMMARY | 2023-09-29 23:59 | XMS_ITS | Continuity of Care Document ---
Author Name Unknown Organization [facility] Address [address] [place] [id number]- Care Team Providers Care Production Posting Clerk Name Role Phone Dorothy Washburn MD Primary Care Physician En[place] [facility] [place] Date(s): 05/22/23 - 07/26/[address] [address]- Attending Physician: Not on Staff, Attending MD Allergies, Adverse Reactions, Alerts Substance Reaction Severity Status shellfish facial swelling Active Bee Stings SOB/localized swelling Activ e Immunizations Given and Recorded Vaccine Date Status Refusal Reason SARS-CoV-2 (COVID-19) mRNA BNT-162b2 vac 07/26/21 Recorded SARS-CoV-2 (COVID-19) mRNA BNT-162b2 vac 12/21/20 Recorded SARS-CoV-2 (COVID-19) mRNA BNT-162b2 vac 11/30/20 Recorded tetanus/diphtheria/pertussis, acel(Tdap) 1 04/25/11 Given 1Admin Note: vis given Problem List Condition Confirmation Course Effective Dates Status Health St atus Informant 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 JAIMIE (generalized anxiety disorder) Confirmed Active Insomnia Confirmed Active Obese class I Confirmed Active Recurrent loss Confirmed Active Tension headache Confirmed Active Urethral Diverticulum Confirmed Active Social History Social History Type Response Smoking Status Never smoker entered on: 11/16/13 Sex Patient Care team information Care Team Personnel Name: Dorothy Washburn MD Position: [facility] Physician - Primary Care Member Role: PCP Address: Address: [address] [place] [address]- Name: Tonya Dyer RN Position: [facility] Part Time Member Role: Primary Care Nurse Care Team Related Persons Name: JEAN CARLOS REEDERLINE Address: home [address] [place] [address] Name: LUCIANO AGUILAR Address: [address] [address]
--- OUTSIDE RECORDS SUMMARY | 2023-09-29 23:59 | XMS_ITS | Continuity of Care Document ---
Author Name Unknown Organization [facility] Address [address] [place] [address]- Care Team Providers Care Portfolio Lead Name Role Phone Dorothy Washburn MD Primary Care Physician Encounter [facility] [place] Date(s): 07/01/23 - 07/31/[address] [address] Attending Physician: Nayely Hoover Admitting Physician: Admtr, Ar8 Referring Physician: Admtr, Ar8 Allergies, Adverse Reactions, Alerts Substance Reaction Severity [...] anxiety disorder) Confirmed Active Insomnia Confirmed Active Recurrent loss Confirmed Active Severe obesity (BMI 35.0-39.9) with comorbidity Confirmed Active Tension headache Confirmed Active Urethral Diverticulum Confirmed Active Social History Social History Type Response Smoking Status Never smoker entered on: 11/16/13 Sex Patient Care team information Care Team Personnel Name: Dorothy Washburn MD Position: [facility] Physician - Primary Care Member Role: PCP Address: Address: [address] [place] [id number]- Name: Tonya Dyer RN Position: [facility] Custody Assistant Member Role: Primary Care Nurse Care Team Related Persons Name: JEREMY REEDER Address: home [address] [place] [address] Name: LUCIANO AGUILAR Address: home [address] [place] [address]
--- OUTSIDE RECORDS SUMMARY | 2023-09-29 23:59 | XMS_ITS | Continuity of Care Document ---
Author Name Unknown Organization [facility] Address [address] [place] [address]- Care Team Providers Care Narrow Gauge Brakeman Name Role Phone Dorothy Washburn MD Primary Care Physician Encounter [facility] [place] Date(s): 04/27/23 - 05/27/[address] [address]- Allergies, Adverse Reactions, Alerts Substance Reaction Severity [...] Team Personnel Name: Dorothy Washburn MD Position: [facility] Physician - Primary Care Member Role: PCP Address: Address: [address] [place] [address]- [place] Name: Tonya Dyer RN Position: [facility] Trauma Doctor Member Role: Primary Care Nurse Care Team Related Persons Name: JEREMY REEDER Address: [place] [address] Name: LUCIANO AGUILAR Address: [address] [address]
--- OUTSIDE RECORDS SUMMARY | 2023-09-30 | XMS_ITS | Continuity of Care Document ---
Author Name Unknown Organization [facility] Adult Address [address] [place] [address]- Care Team Providers Care Gis Scientist Name Role Phone Maddison VU, Dorothy Primary Care Physician [place] [facility] [place] Date(s): 04/28/23 - 05/05/[address] [address]- Encounter Diagnosis Obese class I(Discharge Diagnosis) - 04/28/23 COVID-19(Discharge Diagnosis) - 04/28/23 Attending Physician: Dorothy Washburn MD Allergies, Adverse Reactions, Alerts Substance Reaction Severity Status shellfish facial swelling Active Bee Stings SOB/localized swelling Activ e Immunizations Given and Recorded Vaccine Date Status Refusal Reason SARS-CoV-2 (COVID-19) mRNA BNT-162b2 vac 07/26/21 Recorded SARS-CoV-2 (COVID-19) mRNA BNT-162b2 vac 12/21/20 Recorded SARS-CoV-2 (COVID-19) mRNA BNT-162b2 vac 11/30/20 Recorded tetanus/diphtheria/pertussis, acel(Tdap) 1 04/25/11 Given 1Admin Note: vis given Medications No Known Medications Problem List Condition Confirmation Course Effective Dates Status Health St atus Informant 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 JAIMIE (generalized anxiety disorder) Confirmed Active Insomnia Confirmed Active Obese class I Confirmed Active Recurrent loss Confirmed Active Tension headache Confirmed Active Urethral Diverticulum Confirmed Active Diagnosis Diagnosis Type Effective Dates Health Status inical Service Informant Obese class I Discharge Diagnosis 04/28/23 COVID-19 Discharge Diagnosis 04/28/23 Vital Signs Most recent to oldest [Reference Range]: 1 Height 165 cm (8/29/23 1:12 PM) Social History Social History Type Response Smoking Status Never smoker entered on: 11/16/13 Sex Patient Care team information Care Team Personnel Name: Dorothy Washburn MD Position: [facility] Physician - Primary Care Member Role: PCP Address: Address: [address] [place] [address]- Name: Tonya Dyer RN Position: [facility] Hospital Rigging Man Member Role: Primary Care Nurse Care Team Related Persons Name: JEREMY REEDER Address: home [address] [place] [address] Name: LUCIANO AGUILAR Address: [address] [place] [address]
--- OUTSIDE RECORDS SUMMARY | 2023-09-30 | XMS_ITS | Continuity of Care Document ---
Author Name Unknown Organization [facility] Address [address] [place] [address]- Care Team Providers Care Neon Pumper Name Role Phone Maddison VU, [facility] Primary Care Physician Encounter [facility] [place] Date(s): 12/01/22 - 12/31/22 [facility] [address] [place] [address]- Allergies, Adverse Reactions, Alerts Substance Reaction Severity [...] Start Date: 06/03/22 Stop Date: 06/10/22 Status: Ordered zolpidem 6.25 mg oral tablet, extended release 1 tablet = 6.25 mg, By Mouth, Daily at bedtime, PRN as needed for sleep, # 12 tablet, 0 Refills, Maintenance, 08/15/22 14:02:00 EST, ER Tablet, [id number], Partial fill upon patient request if the prescription is for a schedule II opioid drug.... Start Date: 08/15/22 Status: Ordered Problem List Condition Confirmation Course [...] Team Personnel Name: Dorothy Washburn MD Position: [facility] Primary Care Physician Member Role: PCP Address: Address: [address] [place] [address]- Name: Tonya Dyer RN Position: [facility] Retail Account Manager Member Role: Primary Care Nurse Care Team Related Persons Name: JEREMY REEDER Address: [place] [address] Name: LUCIANO AGUILAR Address: [address] [place] [address]
--- OUTSIDE RECORDS SUMMARY | 2023-09-30 | XMS_ITS | Continuity of Care Document ---
Author Name Unknown Organization [facility] Adult Address [address] [place] [address]- Care Team Providers Care Medical Technologist Prn Name Role Phone Maddison VU, [facility] Primary Care Physician ( [phone] Encounter [facility] [place] Date(s): 05/15/23 - 05/22/23 [facility] Adult [address] [place] [address]- Attending Physician: Not on Staff, Attending MD [...] headache Confirmed Active Urethral Diverticulum Confirmed Active Vital Signs Most recent to oldest [Reference Range]: 1 Height 165 cm (05/15/23 8:40 AM) Pulse Rate [55-90 bpm] 81 bpm (05/15/23 8:40 AM) Blood Pressure [90-138/55-84 mm Hg] 132/ 85mm Hg (05/15/23 8:40 AM) Blood pressure sites Arm, left (05/15/23 8:40 AM) Social History Social History Type Response Smoking Status Never smoker entered on: 11/16/13 Sex Patient Care team information Care Team Personnel Name: Dorothy Washburn MD Position: [facility] Physician - Primary Care Member Role: PCP Address: Address: [address] [place] [address]- Name: Tonya Dyer RN Position: [facility] Hospital Trim Machine Adjuster Member Role: Primary Care Nurse Care Team Related Persons Name: JEREMY REEDER Address: home [address] [place] [address] Name: LUCIANO AGUILAR Address: [address] [place] [address]
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
--- OUTSIDE RECORDS SUMMARY | 2023-09-30 00:01 | XMS_ITS | Continuity of Care Document ---
Author Name Unknown Organization [facility] ter Address [address] [place] [address]- Care Team Providers Care Semi Conductor Assembler Name Role Phone [facility] Primary Care Physician Encounter [facility] Date(s): 12/01/22 - 12/01/[address] [address]- Discharge Disposition: A-D/C Walkout Attending Physician: Not [...] 0 Refills, Maintenance, 06/03/22 11:06:00 EDT, Tablet, [facility]/pharmacy #[id number], Partial fill upon patient request if the prescription is for a schedule II opioid drug., 162, cm, ... Start Date: 06/03/22 Stop Date: 06/10/22 Status: [...] Exam Date Time Procedure Performing Provider Status 12/01/22 2:27 PM Chest 2 Views Frontal and Lat Maureen Callejas; Auth (Verified) Notes: (Chest 2 Views Frontal and Lat) Reason For Exam: Chest Pain;Other: RESULT: Chest 2 Views Frontal and Lat Chest 2 Views Frontal and Lat Hx of Present Illness: Pt c o intermittent dizziness x1 month. Spells have intensified over last week and was notably worse today. States she hasn't been sleeping well over last 3 months d t family stressors. States it feels like the room is spinning during episodes.; Reason: Other:; Chest Pain; Clinical Question(s): Other: COMPARISON: 11/15/2019 FINDINGS: LINES AND TUBES: None. LUNGS AND PLEURA: Clear lungs. Normal pulmonary vascularity. No pleural effusion. No pneumothorax. HEART, MEDIASTINUM AND CHANCE: Heart is normal in size. Normal mediastinal and hilar contour. BONES AND SOFT TISSUES: No acute abnormality. IMPRESSION: No acute abnormality. WSN: [id number] Ordering Physician: Raiza Edmonds Dictated By: Conner Short MD Dictated Date/Time: 12/01/22 3:11 pm Reviewed By: Conner Sohrt MD Signed By: Conner Short MD Signed Date/Time: 12/01/22 3:11 pm Transcribed By: LUNA Transcribed Date/Time: 12/01/22 3:11 pm Vital Signs Most recent to oldest [Reference Range]: 1 2 Height 165 cm (12/01/22 2:42 PM) 165 cm (12/01/22 1:44 PM) Weight 91.3 kg (12/01/22 2:42 PM) 91.3 kg (12/01/22 1:44 PM) Oxygen Saturation [94-100 %] 100 % (12/01/22 6:05 PM) 100 % (12/01/22 2:42 PM) Pulse Rate [55-90 bpm] 87 bpm (12/01/22 6:05 PM) 77 bpm (12/01/22 2:42 PM) Body Mass Index [18.5-24.99 kg/m2] 33.54 kg/m2 *>HHI* (12/01/22 2:42 PM) Blood Pressure [90-138/55-84 mm Hg] 139/ 88mm Hg *H* (12/01/22 6:05 PM) 135/90mm Hg (12/01/22 2:42 PM) Respiratory Rate [16-30 br/min] 16 br/mi n (12/01/22 6:05 PM) 16 br/min (12/01/22 2:42 PM) Temperature [96.8-100.4 DegF] 98.5 DegF (12/01/22 6:05 PM) 98.4 DegF (12/01/22 2:42 PM) Mode of Delivery (Oxygen) Room air (12/01/22 6:05 PM) Room air (12/01/22 2:42 PM) Blood pressure sites Arm, right (12/01/22 6:05 PM) Arm, left (12/01/22 2:42 PM) Temperature Route Oral (12/01/22 6:05 PM) Oral (12/01/22 2:42 PM) Dry Weight 91.3 kg (12/01/22 2:42 PM) 91.3 kg (12/01/22 1:44 PM) Social History Social History Type Response Smoking Status Never smoker entered on: 11/16/13 Sex Note * 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 Spells have intensified over last week and was notably worse today. States she hasn't been sleeping well over last 3 months d t family stressors. States it feels like the room is spinning during episodes.; Reason: Other:; Chest Pain; Clinical Question(s): Other: COMPARISON: 11/15/2019 FINDINGS: LINES AND TUBES: None. LUNGS AND PLEURA: Clear lungs. Normal pulmonary vascularity. No pleural effusion. No pneumothorax. HEART, MEDIASTINUM AND CHANCE: Heart is normal in size. Normal mediastinal and hilar contour. BONES AND SOFT TISSUES: No acute abnormality. IMPRESSION: No acute abnormality. WSN: [id number] Ordering Physician: Raiza Edmonds Dictated By: Conner Short MD Dictated Date/Time: 12/01/22 3:11 pm Reviewed By: Conner Short MD Signed By: Conner Short MD Signed Date/Time: 12/01/22 3:11 pm Transcribed By: LUNA Transcribed Date/Time: 12/01/22 3:11 pm Patient Care team information Care Team Personnel Name: Dorothy Washburn MD Position: [facility] Primary Care Physician Member Role: PCP Address: Address: [address] [place] [id number] Name: Tonya Dyer RN Position: [facility] Hospital Blood Bank Technologist Member Role: Primary Care Nurse Care Team Related Persons Name: JEREMY REEDER Address: [place] [address] Name: LUCIANO AGUILAR Address: [address] [place] [address]
--- OUTSIDE RECORDS SUMMARY | 2023-09-30 00:01 | XMS_ITS | Continuity of Care Document ---
Author Name Unknown Organization [facility] Address [address] [place] [address]- Care Team Providers Care Ornamental Machine Operator Name Role Phone Dorothy Washburn MD Primary Care Physician Encounter [facility] [id number] Date(s): 04/02/23 - 07/31/[address] [address]- [place] Attending Physician: Dorothy Washburn MD Allergies, Adverse [...] Team Personnel Name: Dorothy Washburn MD Position: [facility] Physician - Primary Care Member Role: PCP Address: Address: [address] [place] [address]- [place] Name: Tonya Dyer RN Position: [facility] Hospital Respiratory Therapy Instructor Member Role: Primary Care Nurse Care Team Related Persons Name: JEREMY REEDER Address: [address] [address] Name: LUCIANO AGUILAR Address: home [address] [place] [address]
--- OUTSIDE RECORDS SUMMARY | 2023-09-30 00:02 | XMS_ITS | Continuity of Care Document ---
Author Name Unknown Organization [facility] Adult Address [address] [place] [address]- Care Team Providers Care Social Scientist Name Role Phone Dorothy Washburn MD Primary Care Physician ( [phone] Encounter [facility] Date(s): 04/28/23 - 05/28/[address] [address]- Allergies, Adverse Reactions, Alerts Substance Reaction Severity [...] Team Personnel Name: Dorothy Washburn MD Position: [facility] Physician - Primary Care Member Role: PCP Address: Address: [address] [place] [id number]- [place] Name: Tonya Dyer RN Position: [facility] Computed Tomography Scanner Operator Member Role: Primary Care Nurse Care Team Related Persons Name: JEREMY REEDER Address: [place] [address] Name: LUCIANO AGUILAR Address: [address] [address]
[2023-09-30 00:14] VITALS: BP 107/73; PULSE 92; RESP 18; TEMP 36.7; O2SAT 98
--- NOTE | 2023-09-30 00:15 | MHC.EDTECH ---
This tech assumed care of patient at this time, patient ambulated to bathroom with a steady gait,urine sample obtained and sent to lab. Hourly rounds and vitals completed,call lala in reach
[2023-09-30 00:29] LABS: Appearance Urine Clear; Color Urine Yellow; Glucose Urine UA Negative (Negative); Leukocyte Esterase Urine Negative (Negative); Nitrite Urine Negative (Negative); Urine Blood Negative (Negative); Urine Ketones Negative (Negative); Urine Protein Negative (Neg-Trace)
[2023-09-30 00:34] LABS: Bacteria Urine None Seen (None Seen); Hyaline Casts Urine 0-2 /LPF (0-2); WBC Urine 0-5 /HPF (0-5)
[2023-09-30] MEDS: Meclizine HCl 25 MG TABLET PO (00:41)
[2023-09-30] MEDS: SUMAtriptan succinate 6 MG/0.5 ML VIAL SUBCUT (00:41)
[2023-09-30] MEDS: Butalb/Acetamin/Caff 50/325/40 TABLET 1 TAB PO (00:41)
[2023-09-30] MEDS: Ondansetron ODT 4 MG TAB.RAPDIS TRANSLINGU (00:41)
[2023-09-30 00:56] LABS: RBC Urine 0-2 /HPF (0-2)
== END 2023-09-30 01:30 | disposition home or self-care (01) ==
PROVIDERS: Physician Assistant; Emergency Provider Internal Medicine
DX: G43.909 Migraine, unspecified, not intractable, without status migrainosus (principal); R07.89 Other chest pain; H81.10 Benign paroxysmal vertigo, unspecified ear; M79.10 Myalgia, unspecified site; F41.1 Generalized anxiety disorder; F43.0 Acute stress reaction; Z11.52 Encounter for screening for COVID-19; Z79.899 Other long term (current) drug therapy
CPT/HCPCS: 36415; 80053; 81001; 83690; 85025; 87502; 87635; 93005; 96372; 99284; J3030

== ENCOUNTER → 2023-09-29 17:30 | Outpatient (BNV) | payer OTHER, SELFPAY | PROVIDERS: Emergency Provider Internal Medicine; Visit Provider Internal Medicine Cardiovascular Disease | DX: G43.909 Migraine, unspecified, not intractable, without status migrainosus (principal) | CPT/HCPCS: 93010 ==